=== PATIENT | female | born 1955 | race American Indian/Alaskan Native ===

== ENCOUNTER 2019-04-17 17:21 | Observation (INO) | payer MEDICARE ==
[2019-04-17] MEDS ORDERED: ALBUTEROL 2.5 MG/3 ML NEBU IH ONE ×2 (18:03→18:07)
[2019-04-17] MEDS ORDERED: IPRATROPIUM 0.02% NEBU 2.5 ML IH ONE ×2 (18:03→18:07)
[2019-04-17] MEDS ORDERED: methylPREDNISolone Sod Succinate 125 MG/2 ML INJ IV ONE (18:03)
--- NOTE | 2019-04-17 18:03 | Event Note ---
ED Screening Note ED Screening Note: sore throat diarrhea +SOB productive cough no fever PMHx asthma, hld, HTN, anemia, GERD allergy: morphine This initial assessment/diagnostic orders/clinical plan/treatment(s) is/are subject to change based on patients health status, clinical progression and re- assessment by fellow clinical providers in the ED. Further treatment and workup at subsequent clinical providers discretion. Patient/guardian urged not to elope from the ED as their condition may be serious if not clinically assessed and ma naged. Initial orders include: labs, CXR, neb tx, steroids, rapid flu
[2019-04-17 19:20] LABS: Basophils # (Auto) 0.1 K/mm3 (0.0-0.1); Basophils % (Auto) 1.1 % (0.0-1.8); Eosinophils # (Auto) 0.4 K/mm3 (0.0-0.4); Eosinophils % (Auto) 5.1 % (0.0-4.3); Hemoglobin 13.8 gm/dl (10.1-14.3); Lymphocytes # (Auto) 2.3 K/mm3 (1.2-5.4); Lymphocytes % (Auto) 29.1 % (13.4-35.0); Mean Corpuscular HGB Conc 33 % (30-34); Mean Corpuscular Volume 80 fl (79-97); Monocytes # (Auto) 0.5 K/mm3 (0.0-0.8); Monocytes % (Auto) 6.7 % (0.0-7.3); Platelet Count 421 K/mm3 (140-440); Red Blood Count 5.25 M/mm3 (3.65-5.03); Red Cell Distribution Width 16.9 % (13.2-15.2)
--- NOTE | 2019-04-17 19:20 | XRay Report ---
CHEST 2 VIEWS INDICATION / CLINICAL INFORMATION: cough, SOB. COMPARISON: 06/18/2015 FINDINGS: SUPPORT DEVICES: None. HEART / MEDIASTINUM: No significant abnormality. LUNGS / PLEURA: No significant pulmonary or pleural abnormality. No pneumothorax. ADDITIONAL FINDINGS: No significant additional findings. IMPRESSION: 1. No acute findings. No interval change. Signer Name: Kate Barahona MD Signed: 04/17/2019 7:15 PM Workstation Name: [id number]
[2019-04-17 19:44] LABS: BUN/Creatinine Ratio 13; Blood Urea Nitrogen 14 mg/dL (7-17); Calcium 9.8 mg/dL (8.4-10.2); Hemolysis Index 1
[2019-04-17] MEDS ORDERED: methylPREDNISolone Sod Succinate 125 MG/2 ML INJ ONE (20:38)
[2019-04-17] MEDS ORDERED: ONDANSETRON 4 MG/2 ML INJ ONE (21:06)
[2019-04-17] MEDS ORDERED: ONDANSETRON 4 MG/2 ML INJ IV ONE ×2 (21:07→22:10)
[2019-04-17] MEDS ORDERED: FUROSEMIDE 20 MG/2 ML INJ IV ONE (22:33)
--- NOTE | 2019-04-17 23:40 | Cat Scan Report ---
CT ANGIOGRAPHY OF THE CHEST WITH INTRAVENOUS CONTRAST AND MULTIPLANAR MIP RECONSTRUCTIONS INDICATION / CLINICAL INFORMATION: Shortness of breath and elevated d-dimer. TECHNIQUE: Axial CT images were obtained after injection of 100 cc Omnipaque 350 IV contrast using CTA protocol. 3 plane MIP / 3D reconstructions were produced. All CT scans at this location are performed using CT dose reduction for ALARA by means of automated exposure control. COMPARISON: None available. FINDINGS: There is good opacification of the pulmonary arterial system bilaterally without intraluminal filling defect to suggest acute PTE. The thoracic aorta is normal in caliber without dissection. There is mi ld coronary artery calcification. The tracheobronchial tree is normal. There are several small noncalcified nodules in the right middle and lower lobes, the largest of which measures approximately 5 mm. There is no evidence of adenopath y or effusion. The gallbladder is surgically absent. I do not identify a left kidney. There is a right breast implan t. There is mild spondylosis. IMPRESSION: 1. No evidence of acute PTE. 2. Multiple small incidental solid nodules in the right middle and lower lobe, the largest of which m easures 5 mm. 3. Mild coronary artery calcification. INCIDENTAL PULMONARY NODULE RECOMMENDATIONS Solid Nodule size <6 mm -- Single or Multiple - Low Risk Patient: No routine follow-up - High Risk Patient: Optional CT at 12 months Note These recommendations do not apply to lung cancer screening, patients with immunosuppression, o r patients with known primary cancer. Note Newly detected indeterminate nodule in persons 35 years of age or older. Persons under the age of 35 should not receive follow-up unless there is a known primary cancer. Low Risk Patient -- minimal or absent history of smoking and of other known risk factors. High Risk Patient -- history of smoking or of other known risk factors. Nodule dimensions are average of long and short axes, rounded to the nearest millimeter. Based on 2017 Fleischner Society Guidelines found in Radiology 2017 284:228-243. https://doi.[email or web address] [email or web address] Signer Name: Sriram Reed MD Signed: 04/17/2019 11:36 PM Workstation Name: [id number]
[2019-04-18] MEDS ORDERED: ONDANSETRON 4 MG/2 ML INJ ONE ×2 (00:11→05:43)
--- NOTE | 2019-04-18 00:16 | Emergency Department Report ---
HPI - General Chief Complaint: Dyspnea/Respdistress Time Seen by Provider: 04/17/19 17:58 - HPI HPI: 63-year-old -[place] female presents to the emergency department with a complaint of a 3 to four-day history of shortness of breath, productive cough and chest congestion. She also complains of some sore throat and recent diarrhea. She has not taken anything for her symptoms prior to presentation. She has a past history of asthma, COPD, diabetes, GERD, hypertension, anemia, high cholesterol. She denies any tobacco or illicit drug use. Her primary care physician is Dr. Saleem Garcia. ED Past Medical Hx - Past Medical History Previous Medical History?: Yes Hx Hypertension: Yes Hx Diabetes: Yes Hx GERD: Yes Hx Asthma: Yes Hx COPD: Yes Additional medical history: ANEMIA. HIGH CHOLESTEROL - Surgical History Past Surgical History?: Yes Hx Cholecystectomy: Yes Hx Breast Surgery: Yes (RIGHT MASTECTOMY/IMPLANT) - Social History Smoking Status: Former Smoker Substance Use Type: None - Medications Home Medications: Home Medications Medication Instructions Recorded Confirmed Last Taken Type Albuterol Sulfate [Proair 90 mcg IH DAILY 10/11/14 10/11/14 Unknown History Respiclick] Fluticasone/Salmeterol [Advair 1 ampul IH DAILY 10/11/14 10/11/14 Unknown History Diskus 500-50 mcg] Ibuprofen [Motrin 800 MG tab] 800 mg PO Q8HR PRN 10/11/14 10/11/14 Unknown History Omeprazole [PriLOSEC] 20 mg PO QDAY 10/11/14 10/11/14 Unknown History Promethazine [Phenergan SUPPOS] 25 mg [place] Q6HR PRN #10 supp.rect 10/11/14 Unknown Rx Promethazine [Phenergan TAB] 25 mg PO Q6HR PRN #20 tab 10/11/14 Unknown Rx Tiotropium [Spiriva] 18 mcg IH QDAY 10/11/14 10/11/14 Unknown History hydroCHLOROthiazide [Hctz] 25 mg PO QDAY 10/11/14 10/11/14 Unknown History metFORMIN [Glucophage] 500 mg PO BID 10/11/14 10/11/14 Unknown History Azithromycin [Zithromax Z-JENNIE] 250 mg PO DAILY 5 Days tablet 06/18/15 Unknown Rx Benzonatate [Tessalon Perles] 100 mg PO Q8HR PRN #20 capsule 06/18/15 Unknown Rx HYDROcodone/APAP 5-325 [[place] 1 - 2 each PO Q6HR PRN #20 tablet 06/18/15 Unknown Rx 5-325 mg TAB] Ibuprofen [Motrin] 800 mg PO Q8HR PRN #20 tablet 06/18/15 Unknown Rx ED Review of Systems ROS: Stated complaint: FLU LIKE SX/SOB Other details as noted in HPI Comment: All other systems reviewed and negative Constitutional: chills. denies: fever Eyes: denies: eye pain, vision change ENT: throat pain. denies: ear pain Respiratory: cough, shortness of breath, SOB with exertion Cardiovascular: denies: palpitations, edema Gastrointestinal: nausea, vomiting. denies: abdominal pain Genitourinary: denies: dysuria, discharge Musculoskeletal: denies: back pain, arthralgia Skin: denies: rash, lesions Neurological: denies: headache, weakness Physical Exam - Physical Exam Vital Signs: Vital Signs 04/17/19 04/17/19 04/17/19 17:59 20:34 21:00 Temperature 99 F 98.4 F Pulse Rate 138 H 98 H 120 H Respiratory 24 28 H 22 Rate Blood Pressure 137/86 148/105 Blood Pressure 140/89 [Left] O2 Sat by Pulse 94 95 95 Oximetry 04/17/19 04/18/19 22:00 00:01 Temperature Pulse Rate 111 H Respiratory 20 Rate Blood Pressure 148/105 144/97 Blood Pressure [Left] O2 Sat by Pulse 93 98 Oximetry Physical Exam: GENERAL: The patient is well-developed well-nourished. HEENT: Normocephalic. Atraumatic. Patient has moist mucous membranes. EYES: Extraocular motions are intact. NECK: Supple. Trachea is midline. CHEST/LUNGS: Coarse breath sounds heard throughout the chest, both with and without auscultation. There is mild tachypnea but no accessory muscle use. There is no respiratory distress noted. HEART/CARDIOVASCULAR: Regular. There is mild tachycardia. There is no murmur. ABDOMEN: Abdomen is soft, nontender. Patient has normal bowel sounds. There is no abdominal distention. SKIN:Skin is warm and dry. . NEURO: The patient is awake, alert, and oriented. The patient is cooperative. The patient has no focal neurologic deficits. Normal speech. MUSCULOSKELETAL: There is no tenderness or deformity. There is no limitation range of motion. There is no evidence of acute injury. ED Course Vital Signs 04/17/19 04/17/19 04/17/19 17:59 20:34 21:00 Temperature 99 F 98.4 F Pulse Rate 138 H 98 H 120 H Respiratory 24 28 H 22 Rate Blood Pressure 137/86 148/105 Blood Pressure 140/89 [Left] O2 Sat by Pulse 94 95 95 Oximetry 04/17/19 04/18/19 22:00 00:01 Temperature Pulse Rate 111 H Respiratory 20 Rate Blood Pressure 148/105 144/97 Blood Pressure [Left] O2 Sat by Pulse 93 98 Oximetry ED Medical Decision Making - Lab Data Result diagrams: 04/17/19 18:32 04/17/19 18:32 - EKG Data -: EKG Interpreted by Me EKG shows normal: sinus rhythm (PACs), axis, intervals, QRS complexes, ST-T waves Rate: tachycardia (119 bpm) - EKG Data When compared to previous EKG there are: previous EKG unavailable Interpretation: other (sinus tachycardia, PACs, no ST elevation NM) - Radiology Data Radiology results: report reviewed, image reviewed interpreted by me: Chest x-ray does not show any pleural effusions, pneumonia, pneumothorax, focal consolidation, or any other acute process. CT ANGIOGRAPHY OF THE CHEST WITH INTRAVENOUS CONTRAST AND MULTIPLANAR MIP RECONS TRUCTIONS INDICATION / CLINICAL INFORMATION: Shortness of breath and elevated d-dimer. TECHNIQUE: Axial CT images were obtained after injection of 100 cc Omnipaque 350 IV contrast using CTA protocol. 3 plane MIP / 3D reconstructions were produced. All CT scans at this location are performed using CT dose reduction for ALARA by means of automated exposure control. COMPARISON: None available. FINDINGS: There is good opacification of the pulmonary arterial system bilaterally without intraluminal filling defect to suggest acute PTE. The thoracic aorta is normal in caliber without dissection. There is mild coronary artery calcification. The tracheobronchial tree is normal. There are several small noncalcified nodules in the right middle and lower lobes, the largest of which measures approximately 5 mm. There is no evidence of adenopathy or effusion. The gallbladder is surgically absent. I do not identify a left kidney. There is a right breast implant. There is mild spondylosis. IMPRESSION: 1. No evidence of acute PTE. 2. Multiple small incidental solid nodules in the right middle and lower lobe, the largest of which measures 5 mm. 3. Mild coronary artery calcification. - Medical Decision Making This patient presents with a few days of shortness of breath, productive cough. She presents to the emergency department with a heart rate of about 135. D uring my initial examination the patient has coarse breath sounds and some mild tachypnea but she is not in any respiratory distress. Chest x-ray did not show any acute process. Recent labs were mostly unremarkable except for a elevated and equivocal d-dimer and the patient had a moderately elevated BNP of about 3500. Patient was given 15 mg of albuterol, some Solu-Medrol, a dose of Lasix. She has started to diurese. She is starting to show some improvement but given her presentation, her comorbidities, the patient will be admitted to the hospital for further evaluation and treatment. She was accepted for admission by the hospitalist, Dr. Graf. - Differential Diagnosis COPD, CHF, Pneumonia, PE Critical Care Time: No Critical care attestation.: If time is entered above; I have spent that time in minutes in the direct care of this critically ill patient, excluding procedure time. ED Disposition Clinical Impression: COPD exacerbation Dyspnea Qualifiers: Dyspnea type: shortness of breath Qualified Code(s): R06.02 - Shortness of breath CHF (congestive heart failure) Qualifiers: Heart failure type: unspecified Heart failure chronicity: unspecified Qualified Code(s): I50.9 - Heart failure, unspecified Disposition: 09 OP ADMIT IP TO THIS HOSP Is pt being admited?: Yes Condition: Fair Instructions: Chronic Obstructive Pulmonary Disease (ED) Referrals: PRIMARY CARE, [Referring] - 3-5 Days Time of Disposition: 00:17
--- NOTE | 2019-04-18 00:24 | History and Physical Report ---
History of Present Illness Date of examination: 04/17/19 Date of admission: 04/17/19 Chief complaint: Headache, shortness of breath x3 days History of present illness: Patient is a 63-year-old female with a past medical history of asthma, COPD, DM 2, breast cancer and COPD who presents to ER with complaints of headache, sore throat, diarrhea, nausea and shortness of breath x 3 days. Patient states she has been finding it more difficult to complete activities as she is getting more winded with each step this evening. Patient also reports not been able to keep food down over the last couple days due to increasing nausea. During my evaluation patient continues to have nausea without vomiting and appears uncomfortable she denies any fever, chest pain or syncopal episode. Past History Past Medical History: COPD, diabetes, hypertension, other Past Surgical History: cholecystectomy, Other (Right mastectomy) Family history: hypertension Medications and Allergies Allergies Allergy/AdvReac Type Severity Reaction Status Date / Time morphine AdvReac HALLUCINATI Verified 10/11/14 10:18 ONS Home Medications Medication Instructions Recorded Confirmed Last Taken Type Albuterol Sulfate [Proair 90 mcg IH DAILY 10/11/14 10/11/14 Unknown History Respiclick] Fluticasone/Salmeterol [Advair 1 ampul IH DAILY 10/11/14 10/11/14 Unknown History Diskus 500-50 mcg] Ibuprofen [Motrin 800 MG tab] 800 mg PO Q8HR PRN 10/11/14 10/11/14 Unknown History Omeprazole [PriLOSEC] 20 mg PO QDAY 10/11/14 10/11/14 Unknown History Promethazine [Phenergan SUPPOS] 25 mg [place] Q6HR PRN #10 supp.rect 10/11/14 Unknown Rx Promethazine [Phenergan TAB] 25 mg PO Q6HR PRN #20 tab 10/11/14 Unknown Rx Tiotropium [Spiriva] 18 mcg IH QDAY 10/11/14 10/11/14 Unknown History hydroCHLOROthiazide [Hctz] 25 mg PO QDAY 10/11/14 10/11/14 Unknown History metFORMIN [Glucophage] 500 mg PO BID 10/11/14 10/11/14 Unknown History Azithromycin [Zithromax Z-JENNIE] 250 mg PO DAILY 5 Days tablet 06/18/15 Unknown Rx Benzonatate [Tessalon Perles] 100 mg PO Q8HR PRN #20 capsule 06/18/15 Unknown Rx HYDROcodone/APAP 5-325 [[place] 1 - 2 each PO Q6HR PRN #20 tablet 06/18/15 Un known Rx 5-325 mg TAB] Ibuprofen [Motrin] 800 mg PO Q8HR PRN #20 tablet 06/18/15 Unknown Rx Review of Systems All systems: negative Ears, nose, mouth and throat: sore throat Cardiovascular: shortness of breath, dyspnea on exertion, high blood pressure Respiratory: cough Gastrointestinal: diarrhea Neurological: headaches Exam - Physical Exam Narrative exam: General appearance: Present: mild distress - EENT Eyes: Present: PERRL ENT: hearing intact, clear oral mucosa - Neck Neck: Present: supple, normal ROM - Respiratory Respiratory effort: normal Respiratory: bilateral: wheeze, - Cardiovascular Heart Sounds: Present: S1 & S2. Absent: rub, click - Extremities Extremities: pulses symmetrical, No edema Peripheral Pulses: within normal limits - Abdominal General gastrointestinal: Present: , non-distended, normal bowel sounds Female genitourinary: Present: normal - Integumentary Integumentary: Present: clear, warm, dry - Musculoskeletal Musculoskeletal: gait normal, strength equal bilaterally - Psychiatric Psychiatric: appropriate mood/affect, intact judgment & insight - Neurologic Neurologic: CNII-XII intact, moves all extremities - Constitutional Vitals: Temp Pulse Resp BP Pulse Ox 98.4 F 111 H 20 144/97 98 04/17/19 20:34 04/17/19 22:00 04/17/19 22:00 04/18/19 00:01 04/18/19 00:01 Results - Labs CBC & Chem 7: 04/17/19 18:32 04/17/19 18:32 Labs: Laboratory Last Values WBC 7.9 K/mm3 (4.5-11.0) 04/17/19 18:32 RBC 5.25 M/mm3 (3.65-5.03) H 04/17/19 18:32 Hgb 13.8 gm/dl (10.1-14.3) 04/17/19 18:32 Hct 42.0 % (30.3-42.9) 04/17/19 18:32 MCV 80 fl (79-97) 04/17/19 18:32 MCH 26 pg (28-32) L 04/17/19 18:32 MCHC 33 % (30-34) 04/17/19 18:32 RDW 16.9 % (13.2-15.2) H 04/17/19 18:32 Plt Count 421 K/mm3 (140-440) 04/17/19 18:32 Lymph % (Auto) 29.1 % (13.4-35.0) 04/17/19 18:32 [place] % (Auto) 6.7 % (0.0-7.3) 04/17/19 18:32 Eos % (Auto) 5.1 % (0.0-4.3) H 04/17/19 18: Baso % (Auto) 1.1 % (0.0-1.8) 04/17/19 18: Lymph # 2.3 K/mm3 (1.2-5.4) 04/17/19 18: [place] # 0.5 K/mm3 (0.0-0.8) 04/17/19 18: Eos # 0.4 K/mm3 (0.0-0.4) 04/17/19 18: Baso # 0.1 K/mm3 (0.0-0.1) 04/17/19 18: Seg Neutrophils % 58.0 % (40.0-70.0) 04/17/19 18: Seg Neutrophils # 4.6 K/mm3 (1.8-7.7) 04/17/19 18:32 D-Dimer 469.29 ng/mlDDU (0-234) H 04/17/19 21:37 Sodium 142 mmol/L (137-145) 04/17/19 18:32 Potassium 3.8 mmol/L (3.6-5.0) 04/17/19 18:32 Chloride 101.8 mmol/L (98-107) 04/17/19 18:32 Carbon Dioxide 19 mmol/L (22-30) L 04/17/19 18:32 Anion Gap 25 mmol/L 04/17/19 18:32 BUN 14 mg/dL (7-17) 04/17/19 18:32 Creatinine 1.1 mg/dL (0.7-1.2) 04/17/19 18:32 Estimated GFR > 60 ml/min 04/17/19 18:32 BUN/Creatinine Ratio 13 % 04/17/19 18:32 Glucose 123 mg/dL (65-100) H 04/17/19 18:32 Calcium 9.8 mg/dL (8.4-10.2) 04/17/19 18:32 NT-Pro-B Natriuret Pep 3480 pg/mL (0-900) H 04/17/19 18:32 Influenza A (Rapid) Negative (Negative) 04/17/19 18:05 Influenza B (Rapid) Negative (Negative) 04/17/19 18:05 - Imaging and Cardiology Chest x-ray: report reviewed (No acute findings. No interval change.) CT scan - chest: report reviewed (No evidence of acute PTE. Multiple small incidental solid nodules in the right middle and lower lobe, the largest of Which measures 5 mm. Mild coronary artery calcification. ) Assessment and Plan Assessment and plan: The patient has been seen in conjunction with Dr. Graf who agrees with the assessment and plan of care. Congestive heart Failure -BNP 3500 -Monitor input and output. -IV diuretics, supportive care -Cardiology consult -Echocardiogram ordered Hypertension -Home meds once reconciled -Monitor BP q shift Diabetes mellitus -Patient is not on any diabetes medication; sts borderline -Accu-Chek achs - sliding scale insulin if needed DVT prophylaxis -SCDs bilaterally -Patient ambulatory VTE prophylaxis?: Mechanical Plan of care discussed with patient/family: Yes
[2019-04-18] MEDS ORDERED: HYDROmorphone 1 MG/1 ML INJ ONE (03:41)
[2019-04-18] MEDS: HYDROmorphone 1 MG/1 ML INJ IV PRN (03:42)
[2019-04-18] MEDS ORDERED: ONDANSETRON 4 MG/2 ML INJ IV ONE (05:34)
[2019-04-18] MEDS ORDERED: FUROSEMIDE 40 MG/4 ML INJ ONE (05:43)
[2019-04-18] MEDS ORDERED: PANTOPRAZOLE 40 MG INJ IV ONE (05:44)
[2019-04-18] MEDS: PANTOPRAZOLE 40 MG INJ IV SCH ×3 (05:47→21:58)
[2019-04-18] MEDS ORDERED: SODIUM CHLORIDE 0.9% 1000 ML 1,000 ML ONE (05:57)
[2019-04-18] MEDS: FUROSEMIDE 40 MG/4 ML INJ IV SCH ×2 (06:00→17:19)
[2019-04-18] MEDS: SODIUM CHLORIDE 0.9% 1000 ML 1,000 ML IV SCH ×2 (06:00→17:15)
[2019-04-18] MEDS ORDERED: hydrALAZINE 20 MG/1 ML INJ IV PRN (06:04)
--- NOTE | 2019-04-18 06:39 | Cat Scan Report ---
CT OF THE ABDOMEN AND PELVIS WITH INTRAVENOUS CONTRAST INDICATION / CLINICAL INFORMATION: Mid abdominal pain and dark emesis. TECHNIQUE: The patient received 100 cc Omnipaque [address] scans at this location are performed using CT dose reduction for ALARA by means of automated exposure control. COMPARISON: 10/11/2014. FINDINGS: ABDOMEN: The gallbladder is surgically absent. The liver, spleen, bile ducts, pancreas, adrenal gland s and right kidney are normal. There is a left pelvic kidney. I see no evidence of bowel obstruction, wall thickening or free air. PELVIS: The distal ureters and urinary bladder are normal. There are scattered left colonic diverticu la without evidence of diverticulitis. There is a small to moderate fat-containing periumbilical malachi ia without complication. A normal appendix is present. No abnormal mass or fluid collection is seen. There is mild spondylosis. IMPRESSION:No acute abnormality or significant change. Signer Name: Sriram Reed MD Signed: 04/18/2019 6:34 AM Workstation Name: [id number]
[2019-04-18] MEDS: ALBUTEROL 2.5 MG/3 ML NEBU IH PRN (06:45)
[2019-04-18] MEDS ORDERED: ALBUTEROL 2.5 MG/3 ML NEBU IH ONE (06:46)
[2019-04-18] MEDS: ONDANSETRON 4 MG/2 ML INJ IV PRN (09:49)
[2019-04-18] MEDS: POTASSIUM CHLORIDE ER 20 MEQ TAB PO SCH (09:50)
[2019-04-18] MEDS: ACETAMINOPHEN 325 MG TAB PO PRN (09:52)
--- NOTE | 2019-04-18 11:06 | Gastroenterology Consultation ---
<FABY ALMONTE - Last Filed: 04/18/19 12:11> History of Present Illness - Reason for Consult Consult date: 04/18/19 coffee-ground emesis Requesting physician: ATILIO HASSAN - History of Present Illness Patient is a 63 y/o female with PMH of HTN, DM, GERD, chronic anemia, breast CA (s/p mastectomy), and HLD who presented to ED with c/o SOB, cough, chest congestion, sore throat, headache, diarrhea, and N/V. Upon admission, BNP was found to be moderately elevated at 3480 (chest x-ray w/o acute process, Chest CTA w/o acute PTE) and she was admitted with COPD exacerbation and CHF. Cardiology consult pending. GI has been consulted for coffee-ground emesis. This morning patient was resting in bed in mild distress. Reports continued SOB and N/V. Diarrhea now resolved. States emesis is dark green in color. No hematemesis, melena, or hematochezia. Admits to associated upper abdominal cramping. Denies fever, CP, wt loss, dysphagia, odynophagia, or constipation. Takes Meloxicam at home for hip pain but has no hx of PUD. No prior EGD. s/p CCY. Patient is previously known to our service and followed by Dr. Duke for hx of colon polyps with last colonoscopy 04/28/2018 that showed a rectal polyp, diverticulosis, and internal hemorrhoids. Past History Past Medical History: other (see HPI) Past Surgical History: cholecystectomy, Other (Right mastectomy; colonoscopy 04/2018) Family history: hypertension Medications and Allergies Allergies Allergy/AdvReac Type Severity Reaction Status Date / Time morphine AdvReac HALLUCINATI Verified 10/11/14 10:18 ONS Home Medications Medication Instructions Recorded Confirmed Last Taken Type AtorvaSTATin [Lipitor] 40 mg PO QHS 04/18/19 04/18/19 Unknown History Ferrous Sulfate [Iron 325 MG] 325 mg PO DAILY 04/18/19 04/18/19 Unknown History Fluticasone Propion/Salmeterol 250 puff PO BID 04/18/19 04/18/19 Unknown History [Wixela 250-50 Inhub] Omeprazole 40 mg PO DAILY 04/18/19 04/18/19 Unknown History hydroCHLOROthiazide 25 mg PO HS 04/18/19 04/18/19 Unknown History [Hydrochlorothiazide] Active Meds: Active Medications Acetaminophen (Tylenol) 650 mg PO Q4H PRN PRN Reason: Pain MILD(1-3)/Fever >100.5/CUELLAR Last Admin: 04/18/19 09:52 Dose: 650 mg Documented by: Albuterol (Proventil) 2.5 mg IH Q4HRT PRN PRN Reason: Shortness Of Breath Last Admin: 04/18/19 06:45 Dose: 2.5 mg Documented by: Furosemide (Lasix) 40 mg IV BID@0600,1800 [facility] Last Admin: 04/18/19 06:00 Dose: 40 mg Documented by: Hydralazine HCl (Apresoline) 10 mg IV Q4H PRN PRN Reason: Hypertension Hydromorphone HCl (Dilaudid) 0.25 mg IV Q3H PRN PRN Reason: Pain, Moderate (4-6) Last Admin: 04/18/19 03:42 Dose: 0.25 mg Documented by: Sodium Chloride (Nacl 0.9% 1000 Ml) 1,000 mls @ 125 mls/hr IV DIRECT [facility] Last Admin: 04/18/19 06:00 Dose: 125 mls/hr Documented by: Ondansetron HCl (Zofran) 4 mg IV Q8H PRN PRN Reason: Nausea And Vomiting Last Admin: 04/18/19 09:49 Dose: 4 mg Documented by: Pantoprazole Sodium (Protonix) 40 mg IV BID [facility] Last Admin: 04/18/19 09:49 Dose: 40 mg Documented by: Potassium Chloride (K-Dur) 20 meq PO QDAY [facility] Last Admin: 04/18/19 09:50 Dose: 20 meq Documented by: Sodium Chloride (Sodium Chloride Flush Syringe 10 Ml) 10 ml IV BID [facility] Last Admin: 04/18/19 09:50 Dose: 10 ml Documented by: Sodium Chloride (Sodium Chloride Flush Syringe 10 Ml) 10 ml IV PRN PRN PRN Reason: LINE FLUSH medications reviewed/updated as required Review of Systems - Review of Systems All systems: negative Ears, Nose, Throat: other (sore throat) Respiratory: shortness of breath Gastrointestinal: abdominal pain (cramping), nausea, vomiting, diarrhea (resolved) Exam - Constitutional Vital Signs: Temp Pulse Resp BP Pulse Ox 98.4 F 90 22 141/115 93 04/18/19 02:37 04/18/19 06:46 04/18/19 06:46 04/18/19 06:17 04/18/19 06:17 General appearance: mild distress, obese - EENT Eyes: PERRL, EOM intact ENT: hearing intact - Respiratory Respiratory effort: labored (slightly) Respiratory: bilateral: other (coarse) - Cardiovascular Rhythm: other (tachycardia) - Gastrointestinal General gastrointestinal: Present: soft, non-tender, non-distended, normal bowel sounds - Neurologic Neurological: alert and oriented x3 - Labs CBC & Chem 7: 04/17/19 18:32 04/17/19 18:32 Lab Results: Laboratory Results - last 24 hr 04/17/19 04/17/19 04/17/19 18:05 18:32 18:32 WBC 7.9 RBC 5.25 H Hgb 13.8 Hct 42.0 MCV 80 MCH 26 L MCHC 33 RDW 16.9 H Plt Count 421 Lymph % (Auto) 29.1 [place] % (Auto) 6.7 Eos % (Auto) 5.1 H Baso % (Auto) 1.1 Lymph # 2.3 [place] # 0.5 Eos # 0.4 Baso # 0.1 Seg Neutrophils % 58.0 Seg Neutrophils # 4.6 D-Dimer Sodium 142 Potassium 3.8 Chloride 101.8 Carbon Dioxide 19 L Anion Gap 25 BUN 14 Creatinine 1.1 Estimated GFR > 60 BUN/Creatinine Ratio 13 Glucose 123 H Calcium 9.8 NT-Pro-B Natriuret Pep Influenza A (Rapid) Negative Influenza B (Rapid) Negative Group A Strep Rapid 04/17/19 04/17/19 04/17/19 18:32 21:37 23:57 WBC RBC Hgb Hct MCV MCH MCHC RDW Plt Count Lymph % (Auto) [place] % (Auto) Eos % (Auto) Baso % (Auto) Lymph # [place] # Eos # Baso # Seg Neutrophils % Seg Neutrophils # D-Dimer 469.29 H Sodium Potassium Chloride Carbon Dioxide Anion Gap BUN Creatinine Estimated GFR BUN/Creatinine Ratio Glucose Calcium NT-Pro-B Natriuret Pep 3480 H Influenza A (Rapid) Influenza B (Rapid) Group A Strep Rapid Negative Assessment and Plan 1.coffee-ground emesis 2.N/V -H/H WNL (13.8/42.0) -continue to monitor H/H and transfuse as needed -patient reports dark green emesis; no hematemesis, melena, or hematochezia -etiology unclear -no plan for scope at this time, will consider based on clinical course once respiratory status improved (would need cardiac clearance); sooner if overt bleeding develops -continue PPI -okay for clear liquids as tolerated -continue supportive care -will follow <CECILLE DAY - Last Filed: 04/19/19 14:31> Medications and Allergies Active Meds: Active Medications Acetaminophen (Tylenol) 650 mg PO Q4H PRN PRN Reason: Pain MILD(1-3)/Fever >100.5/CUELLAR Last Admin: 04/18/19 09:52 Dose: 650 mg Documented by: Albuterol (Proventil) 2.5 mg IH Q4HRT PRN PRN Reason: Shortness Of Breath Last Admin: 04/19/19 09:37 Dose: 2.5 mg Documented by: Furosemide (Lasix) 40 mg IV BID@0600,1800 [facility] Last Admin: 04/19/19 05:02 Dose: 40 mg Documented by: Hydralazine HCl (Apresoline) 10 mg IV Q4H PRN PRN Reason: Hypertension Hydromorphone HCl (Dilaudid) 0.25 mg IV Q3H PRN PRN Reason: Pain, Moderate (4-6) Last Admin: 04/19/19 10:17 Dose: 0.25 mg Documented by: Ondansetron HCl (Zofran) 4 mg IV Q8H PRN PRN Reason: Nausea And Vomiting Last Admin: 04/19/19 09:26 Dose: 4 mg Documented by: Pantoprazole Sodium (Protonix) 40 mg PO BID [facility] Last Admin: 04/19/19 09:37 Dose: 40 mg Documented by: Potassium Chloride (K-Dur) 20 meq PO QDAY [facility] Last Admin: 04/19/19 09:37 Dose: 20 meq Documented by: Sodium Chloride (Sodium Chloride Flush Syringe 10 Ml) 10 ml IV BID [facility] Last Admin: 04/19/19 09:38 Dose: 10 ml Documented by: Sodium Chloride (Sodium Chloride Flush Syringe 10 Ml) 10 ml IV PRN PRN PRN Reason: LINE FLUSH Exam - Constitutional Vital Signs: Temp Pulse Resp BP Pulse Ox 97.9 F 100 H 18 134/77 99 04/19/19 07:21 04/19/19 10:28 04/19/19 09:37 04/19/19 10:28 04/19/19 09:40 - Labs CBC & Chem 7: 04/19/19 06:28 04/19/19 06:28 Lab Results: Laboratory Results - last 24 hr 04/18/19 04/18/19 04/19/19 16:23 21:08 06:28 WBC 8.9 RBC 4.68 Hgb 12.1 Hct 37.5 MCV 80 MCH 26 L MCHC 32 RDW 17.3 H Plt Count 365 Lymph % (Auto) 25.5 [place] % (Auto) 5.1 Eos % (Auto) 0.7 Baso % (Auto) 0.4 Lymph # 2.3 [place] # 0.5 Eos # 0.1 Baso # 0.0 Seg Neutrophils % 68.3 Seg Neutrophils # 6.1 Sodium Potassium Chloride Carbon Dioxide Anion Gap BUN Creatinine Estimated GFR BUN/Creatinine Ratio Glucose POC Glucose 190 H 133 H Calcium 04/19/19 04/19/19 04/19/19 06:28 07:31 12:01 WBC RBC Hgb Hct MCV MCH MCHC RDW Plt Count Lymph % (Auto) [place] % (Auto) Eos % (Auto) Baso % (Auto) Lymph # [place] # Eos # Baso # Seg Neutrophils % Seg Neutrophils # Sodium 142 Potassium 3.8 Chloride 101.7 Carbon Dioxide 22 Anion Gap 22 BUN 21 H Creatinine 1.3 H Estimated GFR 50 BUN/Creatinine Ratio 16 Glucose 107 H POC Glucose 107 H 90 Calcium 8.8 Assessment and Plan Pt seen on 04/18/19. Respiratory symptoms primarily. No CGE noted. Plan as above.
--- NOTE | 2019-04-18 14:55 | Consultation ---
<EDNA NGUYEN - Last Filed: 04/18/19 14:50> History of Present Illness Consult date: 04/18/19 Consult reason: congestive heart failure History of present illness: 63-year old woman with a history of COPD, Asthma, hypertension, diabetes and hyperlipidemia. There is no history of coronary artery disease. Her latest cardiac workup was done as an outpatient 6 months ago. She underwent an exercise thallium stress test. She exercised for six minutes of [place] protocol. Thallium images were negative. An echocardiogram reports a normal left ventricular systolic function, ejection fraction 50%. Patient presents with shortness of breath, coughs, congestion and wheezing, admitted with COPD exacerbation. A cardiac consultation has been requested for CHF evaluation. Patient denies chest pain and palpitations. There is no lower extremity edema. Chest x-ray is negative for interstitial edema and a CT angiogram of the chest is negative for PE. An ECG is sinus tachycardia with PACs. Past History Past Medical History: other (see HPI) Past Surgical History: cholecystectomy, Other (Right mastectomy; colonoscopy 04/2018) Family history: hypertension Medications and Allergies Allergies Allergy/AdvReac Type Severity Reaction Status Date / Time morphine AdvReac HALLUCINATI Verified 10/11/14 10:18 ONS Home Medications Medication Instructions Recorded Confirmed Last Taken Type AtorvaSTATin [Lipitor] 40 mg PO QHS 04/18/19 04/18/19 Unknown History Ferrous Sulfate [Iron 325 MG] 325 mg PO DAILY 04/18/19 04/18/19 Unknown History Fluticasone Propion/Salmeterol 250 puff PO BID 04/18/19 04/18/19 Unknown History [Wixela 250-50 Inhub] Omeprazole 40 mg PO DAILY 04/18/19 04/18/19 Unknown History hydroCHLOROthiazide 25 mg PO HS 04/18/19 04/18/19 Unknown History [Hydrochlorothiazide] Active Meds: Active Medications Acetaminophen (Tylenol) 650 mg PO Q4H PRN PRN Reason: Pain MILD(1-3)/Fever >100.5/CUELLAR Last Admin: 04/18/19 09:52 Dose: 650 mg Documented by: Albuterol (Proventil) 2.5 mg IH Q4HRT PRN PRN Reason: Shortness Of Breath Last Admin: 04/18/19 06:45 Dose: 2.5 mg Documented by: Furosemide (Lasix) 40 mg IV BID@0600,1800 [facility] Last Admin: 04/18/19 06:00 Dose: 40 mg Documented by: Hydralazine HCl (Apresoline) 10 mg IV Q4H PRN PRN Reason: Hypertension Hydromorphone HCl (Dilaudid) 0.25 mg IV Q3H PRN PRN Reason: Pain, Moderate (4-6) Last Admin: 04/18/19 03:42 Dose: 0.25 mg Documented by: Sodium Chloride (Nacl 0.9% 1000 Ml) 1,000 mls @ 125 mls/hr IV DIRECT [facility] Last Admin: 04/18/19 06:00 Dose: 125 mls/hr Documented by: Ondansetron HCl (Zofran) 4 mg IV Q8H PRN PRN Reason: Nausea And Vomiting Last Admin: 04/18/19 09:49 Dose: 4 mg Documented by: Pantoprazole Sodium (Protonix) 40 mg IV BID [facility] Last Admin: 04/18/19 09:49 Dose: 40 mg Documented by: Potassium Chloride (K-Dur) 20 meq PO QDAY [facility] Last Admin: 04/18/19 09:50 Dose: 20 meq Documented by: Sodium Chloride (Sodium Chloride Flush Syringe 10 Ml) 10 ml IV BID [facility] Last Admin: 04/18/19 09:50 Dose: 10 ml Documented by: Sodium Chloride (Sodium Chloride Flush Syringe 10 Ml) 10 ml IV PRN PRN PRN Reason: LINE FLUSH Physical Examination Vital Signs Temp Pulse Resp BP Pulse Ox 99 F 138 H 24 137/86 94 04/17/19 17:59 04/17/19 17:59 04/17/19 17:59 04/17/19 17:59 04/17/19 17:59 General appearance: no acute distress HEENT: Positive: PERRL Neck: Positive: trachea midline Cardiac: Positive: Reg Rate and Rhythm Lungs: Positive: Decreased Breath Sounds, Wheezes Neuro: Positive: Grossly Intact Extremities: Absent: edema Results 04/17/19 18:32 04/17/19 18:32 CBC 04/17/19 Range/Units 18:32 WBC 7.9 (4.5-11.0) K/mm3 RBC 5.25 H (3.65-5.03) M/mm3 Hgb 13.8 (10.1-14.3) gm/dl Hct 42.0 (30.3-42.9) % Plt Count 421 (140-440) K/mm3 Lymph # 2.3 (1.2-5.4) K/mm3 [place] # 0.5 (0.0-0.8) K/mm3 Eos # 0.4 (0.0-0.4) K/mm3 Baso # 0.1 (0.0-0.1) K/mm3 Comprehensive Metabolic Panel 04/17/19 Range/Units 18:32 Sodium 142 (137-145) mmol/L Potassium 3.8 (3.6-5.0) mmol/L Chloride 101.8 (98-107) mmol/L Carbon Dioxide 19 L (22-30) mmol/L BUN 14 (7-17) mg/dL Creatinine 1.1 (0.7-1.2) mg/dL Glucose 123 H (65-100) mg/dL Calcium 9.8 (8.4-10.2) mg/dL Assessment and Plan COPD exacerbation Diabetes Hypertension Normal MPI 09/2018 EF 50% by echo 07/2018 We will obtain an echocardiogram for LVEF reassessment. <RAFIQ TENORIO - Last Filed: 04/19/19 09:35> Medications and Allergies Active Meds: Active Medications Acetaminophen (Tylenol) 650 mg PO Q4H PRN PRN Reason: Pain MILD(1-3)/Fever >100.5/CUELLAR Last Admin: 04/18/19 09:52 Dose: 650 mg Documented by: Albuterol (Proventil) 2.5 mg IH Q4HRT PRN PRN Reason: Shortness Of Breath Last Admin: 04/18/19 06:45 Dose: 2.5 mg Documented by: Furosemide (Lasix) 40 mg IV BID@0600,1800 [facility] Last Admin: 04/19/19 05:02 Dose: 40 mg Documented by: Hydralazine HCl (Apresoline) 10 mg IV Q4H PRN PRN Reason: Hypertension Hydromorphone HCl (Dilaudid) 0.25 mg IV Q3H PRN PRN Reason: Pain, Moderate (4-6) Last Admin: 04/18/19 03:42 Dose: 0.25 mg Documented by: Ondansetron HCl (Zofran) 4 mg IV Q8H PRN PRN Reason: Nausea And Vomiting Last Admin: 04/19/19 09:26 Dose: 4 mg Documented by: Pantoprazole Sodium (Protonix) 40 mg PO BID [facility] Potassium Chloride (K-Dur) 20 meq PO QDAY [facility] Last Admin: 04/18/19 09:50 Dose: 20 meq Documented by: Sodium Chloride (Sodium Chloride Flush Syringe 10 Ml) 10 ml IV BID [facility] Last Admin: 04/18/19 21:58 Dose: 10 ml Documented by: Sodium Chloride (Sodium Chloride Flush Syringe 10 Ml) 10 ml IV PRN PRN PRN Reason: LINE FLUSH Physical Examination Vital Signs Temp Pulse Resp BP Pulse Ox 99 F 138 H 24 137/86 94 04/17/19 17:59 04/17/19 17:59 04/17/19 17:59 04/17/19 17:59 04/17/19 17:59 Results 04/19/19 06:28 04/19/19 06:28 CBC 04/19/19 Range/Units 06:28 WBC 8.9 (4.5-11.0) K/mm3 RBC 4.68 (3.65-5.03) M/mm3 Hgb 12.1 (10.1-14.3) gm/dl Hct 37.5 (30.3-42.9) % Plt Count 365 (140-440) K/mm3 Lymph # 2.3 (1.2-5.4) K/mm3 [place] # 0.5 (0.0-0.8) K/mm3 Eos # 0.1 (0.0-0.4) K/mm3 Baso # 0.0 (0.0-0.1) K/mm3 Comprehensive Metabolic Panel 04/19/19 Range/Units 06:28 Sodium 142 (137-145) mmol/L Potassium 3.8 (3.6-5.0) mmol/L Chloride 101.7 (98-107) mmol/L Carbon Dioxide 22 (22-30) mmol/L BUN 21 H (7-17) mg/dL Creatinine 1.3 H (0.7-1.2) mg/dL Glucose 107 H (65-100) mg/dL Calcium 8.8 (8.4-10.2) mg/dL Assessment and Plan As seen and evaluated the patient and agree with the assessment and plan. The patient's presenting with COPD exacerbation diabetes and hypertension. Patient had a recent stress test in September 2018 that showed normal coronary arteries. Patient also had an echo in July 2018 that showed normal ejection fraction 50%; however, diastolic function is not mentioned. At this time will will obtain another echocardiogram for reevaluation of LV function and evaluation of diastolic function.
--- NOTE | 2019-04-18 14:58 | Progress Note ---
Assessment and Plan Acute COPD exacerbation - provide scheduled nebulizer breathing treatment and as needed, empiric steroid - Provide supplemental oxygen to keep oxygen saturation above 92% - Consider to consult pulmonary if no improvement in next 24 hours Congestive heart Failure ?? -BNP 3500 on admission -Monitor input and output. -placed on IV diuretics, supportive care -Cardiology consulted -Echocardiogram ordered coffee-ground emesis/N/V - GERD ? -H/H WNL (13.8/42.0) -continue to monitor H/H and transfuse as needed -etiology unclear -no plan for scope at this time per GI -continue PPI Hypertension -Home meds resumed -Monitor BP q shift Diabetes mellitus, diet controlled -Patient is not on any diabetes medication; -Accu-Chek achs - sliding scale insulin if needed h/o breast cancer - outpt f/u DVT prophylaxis -SCDs bilaterally -Patient ambulatory Brief History: Patient is a 63-year-old female with a past medical history of asthma, COPD, DM 2, breast cancer and COPD who presents to ER with complaints of headache, sore throat, diarrhea, nausea and shortness of breath x 3 days. Also have report of having coffee ground emesis Hospitalist Physical exam: GENERAL: well-developed obese AAF lying on bed appeared to be in no discomfort. HEENT: Normocephalic. Atraumatic. No conjunctival congestion or icterus. Patient has moist mucous membranes. NECK: Supple. Trachea midline. CHEST/LUNGS: + wheezes auscultated bilaterally, breathing nonlabored. HEART/CARDIOVASCULAR: Regular in rate and rhythm. S1 and S2 positive. ABDOMEN: Abdomen is soft, nontender. Patient has normal bowel sounds. SKIN: There is no rash. Warm and dry. NEURO: No focal motor deficit. Follows command. MUSCULOSKELETAL: No joint effusion or tenderness. EXTRIMITY: No edema, no cyanosis or clubbing. PSYCH: Cooperative. Subjective Date of service: 04/18/19 Interval history: Patient seen and examined. Medical records and medication list reviewed. No acute event overnight noted by the RN. Patient denies any chest pain but has difficulty breathing with minimal exertion. Patient is tolerating diet. Discussed plan of care at bedside with patient. Objective - Constitutional Vitals: Vital Signs - 12hr 04/18/19 04/18/19 04/18/19 03:01 03:42 04:12 Pulse Rate 111 H Pulse Rate [ Apical] Pulse Rate [ Bilateral] Pulse Rate [ From Monitor] Respiratory 24 25 H 26 H Rate Respiratory Rate [Bilateral ] Respiratory Rate [ GENERALIZED] Blood Pressure 175/100 Blood Pressure [Left] O2 Sat by Pulse 91 Oximetry 04/18/19 04/18/19 04/18/19 05:00 06:17 06:46 Pulse Rate 98 H 121 H Pulse Rate [ Apical] Pulse Rate [ 90 Bilateral] Pulse Rate [ From Monitor] Respiratory 23 25 H Rate Respiratory 22 Rate [Bilateral ] Respiratory Rate [ GENERALIZED] Blood Pressure 188/109 Blood Pressure 141/115 [Left] O2 Sat by Pulse 90 93 Oximetry 04/18/19 04/18/19 11:00 12:00 Pulse Rate Pulse Rate [ 112 H Apical] Pulse Rate [ Bilateral] Pulse Rate [ 112 H From Monitor] Respiratory 21 Rate Respiratory Rate [Bilateral ] Respiratory 13 Rate [ GENERALIZED] Blood Pressure Blood Pressure [Left] O2 Sat by Pulse 98 Oximetry - Labs CBC & Chem 7: 04/19/19 06:28 04/19/19 06:28 Labs: Abnormal lab results 04/17/19 04/17/19 04/17/19 Range/Units 18:32 18:32 18:32 RBC 5.25 H (3.65-5.03) M/mm3 MCH 26 L (28-32) pg RDW 16.9 H (13.2-15.2) % Eos % (Auto) 5.1 H (0.0-4.3) % D-Dimer (0-234) ng/mlDDU Carbon Dioxide 19 L (22-30) mmol/L Glucose 123 H (65-100) mg/dL POC Glucose (70-105) NT-Pro-B Natriuret Pep 3480 H (0-900) pg/mL 04/17/19 04/18/19 Range/Units 21:37 11:18 RBC (3.65-5.03) M/mm3 MCH (28-32) pg RDW (13.2-15.2) % Eos % (Auto) (0.0-4.3) % D-Dimer 469.29 H (0-234) ng/mlDDU Carbon Dioxide (22-30) mmol/L Glucose (65-100) mg/dL POC Glucose 143 H (70-105) NT-Pro-B Natriuret Pep (0-900) pg/mL
[2019-04-19] MEDS: SODIUM CHLORIDE 0.9% 1000 ML 1,000 ML IV SCH (02:46)
[2019-04-19] MEDS: FUROSEMIDE 40 MG/4 ML INJ IV SCH ×2 (05:02→17:45)
[2019-04-19 07:54] LABS: Basophils % (Auto) 0.4 % (0.0-1.8); Eosinophils # (Auto) 0.1 K/mm3 (0.0-0.4); Eosinophils % (Auto) 0.7 % (0.0-4.3); Hematocrit 37.5 % (30.3-42.9); Hemoglobin 12.1 gm/dl (10.1-14.3); Lymphocytes # (Auto) 2.3 K/mm3 (1.2-5.4); Lymphocytes % (Auto) 25.5 % (13.4-35.0); Mean Corpuscular HGB Conc 32 % (30-34); Mean Corpuscular Volume 80 fl (79-97); Monocytes # (Auto) 0.5 K/mm3 (0.0-0.8); Monocytes % (Auto) 5.1 % (0.0-7.3); Platelet Count 365 K/mm3 (140-440); Red Blood Count 4.68 M/mm3 (3.65-5.03); Red Cell Distribution Width 17.3 % (13.2-15.2)
[2019-04-19 08:11] LABS: Calcium 8.8 mg/dL (8.4-10.2)
[2019-04-19] MEDS: ONDANSETRON 4 MG/2 ML INJ IV PRN ×2 (09:26→21:02)
[2019-04-19] MEDS: PANTOPRAZOLE 40 MG TAB PO SCH ×2 (09:37→21:02)
[2019-04-19] MEDS: ALBUTEROL 2.5 MG/3 ML NEBU IH PRN (09:37)
[2019-04-19] MEDS: POTASSIUM CHLORIDE ER 20 MEQ TAB PO SCH (09:37)
[2019-04-19] MEDS: HYDROmorphone 1 MG/1 ML INJ IV PRN (10:17)
--- NOTE | 2019-04-19 10:31 | Gastroenterology Progress Note ---
<FABY ALMONTE - Last Filed: 04/19/19 10:31> Assessment and Plan 1.coffee-ground emesis-resolved 2.N/V -H/H WNL (12.1/37.5)-stable -continue to monitor H/H and transfuse as needed -no active signs of bleeding overnight or this am -etiology unclear -no plan for scope at this time, will consider EGD for further evaluation of vomiting once respiratory status improved (would need cardiac clearance) -continue PPI -continue clear liquids for now-advance as tolerated -optimize glycemic control -avoid narcotics for this may exacerbate symptoms -continue antiemetics and supportive care Subjective Date of service: 04/19/19 Principal diagnosis: coffee-ground emesis Interval history: Patient resting in bed this am with mild distress 2/2 continued SOB and vomiting. No active signs of bleeding overnight or this am. Objective - Constitutional Vitals: Temp Pulse Resp BP Pulse Ox 97.9 F 100 H 18 134/77 99 04/19/19 07:21 04/19/19 10:28 04/19/19 09:37 04/19/19 10:28 04/19/19 09:40 General appearance: mild distress, obese - EENT Eyes: PERRL, EOM intact ENT: hearing intact - Respiratory Respiratory effort: labored (slightly ) Respiratory: bilateral: other (coarse) - Cardiovascular Rhythm: other (tachycardia) - Gastrointestinal General gastrointestinal: Present: soft, non-tender, non-distended, normal bowel sounds - Neurologic Neurological: alert and oriented x3 - Labs CBC & Chem 7: 04/19/19 06:28 04/19/19 06:28 Labs: Laboratory Results - last 24 hr 04/18/19 04/18/19 04/18/19 11:18 16:23 21:08 WBC RBC Hgb Hct MCV MCH MCHC RDW Plt Count Lymph % (Auto) [place] % (Auto) Eos % (Auto) Baso % (Auto) Lymph # [place] # Eos # Baso # Seg Neutrophils % Seg Neutrophils # Sodium Potassium Chloride Carbon Dioxide Anion Gap BUN Creatinine Estimated GFR BUN/Creatinine Ratio Glucose POC Glucose 143 H 190 H 133 H Calcium 04/19/19 04/19/19 04/19/19 06:28 06:28 07:31 WBC 8.9 RBC 4.68 Hgb 12.1 Hct 37.5 MCV 80 MCH 26 L MCHC 32 RDW 17.3 H Plt Count 365 Lymph % (Auto) 25.5 [place] % (Auto) 5.1 Eos % (Auto) 0.7 Baso % (Auto) 0.4 Lymph # 2.3 [place] # 0.5 Eos # 0.1 Baso # 0.0 Seg Neutrophils % 68.3 Seg Neutrophils # 6.1 Sodium 142 Potassium 3.8 Chloride 101.7 Carbon Dioxide 22 Anion Gap 22 BUN 21 H Creatinine 1.3 H Estimated GFR 50 BUN/Creatinine Ratio 16 Glucose 107 H POC Glucose 107 H Calcium 8.8 <CECILLE DAY R - Last Filed: 04/19/19 16:05> Assessment and Plan Pt doing well. If has persistent N/V, would give low dose Ativan. Pt has hx of anxiety, and has used lorazepam in the distant past. Objective - Constitutional Vitals: Temp Pulse Resp BP Pulse Ox 97.9 F 100 H 18 134/77 99 04/19/19 07:21 04/19/19 10:28 04/19/19 09:37 04/19/19 10:28 04/19/19 09:40 - Labs CBC & Chem 7: 04/19/19 06:28 04/19/19 06:28 Labs: Laboratory Results - last 24 hr 04/18/19 04/18/19 04/19/19 16:23 21:08 06:28 WBC 8.9 RBC 4.68 Hgb 12.1 Hct 37.5 MCV 80 MCH 26 L MCHC 32 RDW 17.3 H Plt Count 365 Lymph % (Auto) 25.5 [place] % (Auto) 5.1 Eos % (Auto) 0.7 Baso % (Auto) 0.4 Lymph # 2.3 [place] # 0.5 Eos # 0.1 Baso # 0.0 Seg Neutrophils % 68.3 Seg Neutrophils # 6.1 Sodium Potassium Chloride Carbon Dioxide Anion Gap BUN Creatinine Estimated GFR BUN/Creatinine Ratio Glucose POC Glucose 190 H 133 H Calcium 04/19/19 04/19/19 04/19/19 06:28 07:31 12:01 WBC RBC Hgb Hct MCV MCH MCHC RDW Plt Count Lymph % (Auto) [place] % (Auto) Eos % (Auto) Baso % (Auto) Lymph # [place] # Eos # Baso # Seg Neutrophils % Seg Neutrophils # Sodium 142 Potassium 3.8 Chloride 101.7 Carbon Dioxide 22 Anion Gap 22 BUN 21 H Creatinine 1.3 H Estimated GFR 50 BUN/Creatinine Ratio 16 Glucose 107 H POC Glucose 107 H 90 Calcium 8.8
--- NOTE | 2019-04-19 11:10 | Progress Note ---
<EDNA NGUYEN - Last Filed: 04/19/19 11:06> Assessment and Plan COPD exacerbation N/V Diabetes Hypertension An echocardiogram this admission reports a mildly decreased LVEF 40-45%. Normal MPI 09/2018 LVEF 50% by echo 07/2018 We will initiate beta blockers for mild dilated cardiomyopathy. Subjective Date of service: 04/19/19 Principal diagnosis: coffee-ground emesis Interval history: Patient vomiting this morning. Objective Vital Signs Temp Pulse Pulse Pulse Pulse Resp Resp 04/19/19 10:28 100 H 04/19/19 09:40 04/19/19 09:37 95 H 18 04/19/19 07:21 97.9 F 90 18 04/19/19 03:44 98.2 F 107 H 18 04/19/19 00:26 98.0 F 109 H 18 04/18/19 20:27 98.6 F 100 H 18 04/18/19 19:14 04/18/19 16:33 111 H 04/18/19 14:43 113 H 04/18/19 12:00 112 H 112 H 21 BP BP Pulse Ox 04/19/19 10:28 134/77 04/19/19 09:40 99 04/19/19 09:37 04/19/19 07:21 109/67 92 04/19/19 03:44 115/80 96 04/19/19 00:26 116/69 92 04/18/19 20:27 141/68 99 04/18/19 19:14 93 04/18/19 16:33 145/86 92 04/18/19 14:43 04/18/19 12:00 98 - Physical Examination General: No Apparent Distress HEENT: Positive: PERRL Neck: Positive: trachea midline Cardiac: Positive: Reg Rate and Rhythm Lungs: Positive: Decreased Breath Sounds Neuro: Positive: Grossly Intact Extremities: Absent: edema - Labs and Meds CBC 04/19/19 Range/Units 06:28 WBC 8.9 (4.5-11.0) K/mm3 RBC 4.68 (3.65-5.03) M/mm3 Hgb 12.1 (10.1-14.3) gm/dl Hct 37.5 (30.3-42.9) % Plt Count 365 (140-440) K/mm3 Lymph # 2.3 (1.2-5.4) K/mm3 [place] # 0.5 (0.0-0.8) K/mm3 Eos # 0.1 (0.0-0.4) K/mm3 Baso # 0.0 (0.0-0.1) K/mm3 Comprehensive Metabolic Panel 04/19/19 Range/Units 06:28 Sodium 142 (137-145) mmol/L Potassium 3.8 (3.6-5.0) mmol/L Chloride 101.7 (98-107) mmol/L Carbon Dioxide 22 (22-30) mmol/L BUN 21 H (7-17) mg/dL Creatinine 1.3 H (0.7-1.2) mg/dL Glucose 107 H (65-100) mg/dL Calcium 8.8 (8.4-10.2) mg/dL <RAFIQ TENORIO - Last Filed: 04/20/19 10:24> Assessment and Plan Has seen and evaluated the patient and agree with the assessment and plan. Patient is presenting with COPD exacerbation, diabetes, and hypertension. Patient has an echocardiogram that does show mildly decreased left ventricular ejection fraction 40-45%. Patient is a recent stress test that shows no s ignificant disease. At this time patient does appear euvolemic. We'll initiate the patient on a beta emily for treatment of mild systolic dysfunction. Objective Vital Signs Temp Pulse Pulse Resp Resp BP BP 04/20/19 09:31 116 H 145/89 04/20/19 08:02 98.2 F 18 145/89 04/20/19 03:39 99.1 F 97 H 18 149/86 04/20/19 01:35 84 18 04/20/19 00:00 92 H 04/19/19 23:45 98.1 F 100 H 18 149/82 04/19/19 19:21 98.4 F 101 H 20 147/98 04/19/19 17:46 85 99/60 04/19/19 12:39 98.1 F 90 18 111/63 04/19/19 10:28 100 H 134/77 Pulse Ox 04/20/19 09:31 04/20/19 08:02 04/20/19 03:39 93 04/20/19 01:35 04/20/19 00:00 04/19/19 23:45 94 04/19/19 19:21 93 04/19/19 17:46 04/19/19 12:39 92 04/19/19 10:28 - Labs and Meds Comprehensive Metabolic Panel 04/20/19 Range/Units 03:12 Sodium 139 (137-145) mmol/L Potassium 3.7 (3.6-5.0) mmol/L Chloride 98.8 (98-107) mmol/L Carbon Dioxide 24 (22-30) mmol/L BUN 24 H (7-17) mg/dL Creatinine 1.3 H (0.7-1.2) mg/dL Glucose 118 H (65-100) mg/dL Calcium 9.1 (8.4-10.2) mg/dL
--- NOTE | 2019-04-19 16:12 | Progress Note ---
Assessment and Plan Assessment and plan: Acute COPD exacerbation - provide scheduled nebulizer breathing treatment and as needed, empiric steroid - Provide supplemental oxygen to keep oxygen saturation above 92% - Consider to consult pulmonary if no improvement in next 24 hours Congestive heart Failure ?? -BNP 3500 on admission -Monitor input and output. -placed on IV diuretics, supportive care -Cardiology consulted -Echocardiogram ordered coffee-ground emesis/N/V - GERD ? -H/H WNL (13.8/42.0) -continue to monitor H/H and transfuse as needed -etiology unclear -no plan for scope at this time per GI -continue PPI Hypertension -Home meds resumed -Monitor BP q shift Diabetes mellitus, diet controlled -Patient is not on any diabetes medication; -Accu-Chek achs - sliding scale insulin if needed h/o breast cancer - outpt f/u DVT prophylaxis -SCDs bilaterally -Patient ambulatory Brief History: Patient is a 63-year-old female with a past medical history of asthma, COPD, DM 2, breast cancer and COPD who presents to ER with complaints of headache, sore throat, diarrhea, nausea and shortness of breath x 3 days. Also have report of having coffee ground emesis History Interval history: Patient seen and examined medical records reviewed Patient complaints of worsening shortness of breath slightly improved since admission Mild increase in creatinine acute kidney injury Probably secondary to vasomotor nephropathy Patient did not have any new episodes of coffee-ground emesis However complaints of nausea Also has anxiety episodes Vital signs reviewed Hospitalist Physical - Constitutional Vitals: Temp Pulse Resp BP Pulse Ox 97.9 F 100 H 18 134/77 99 04/19/19 07:21 04/19/19 10:28 04/19/19 09:37 04/19/19 10:28 04/19/19 09:40 General appearance: Present: mild distress, well-nourished, obese (morbidly obese), other (anxious) - EENT Eyes: Present: PERRL, EOM intact - Neck Neck: Present: supple, normal ROM - Respiratory Respiratory effort: normal Respiratory: bilateral: diminished, negative: rales, rhonchi, wheezing - Cardiovascular Rhythm: regular Heart Sounds: Present: S1 & S2 - Extremities Extremities: no ischemia, No edema - Abdominal General gastrointestinal: soft, non-tender, non-distended, normal bowel sounds - Integumentary Integumentary: Present: clear, warm - Psychiatric Psychiatric: appropriate mood/affect, cooperative - Neurologic Neurologic: CNII-XII intact, moves all extremities JACQUELIN score - Jacquelin Score Age > 65: (0) No Aspirin use within the Past 7 Days: (0) No 3 or more CAD Risk Factors: (1) Yes 2 or more Angina events in past 24 hrs: (0) No Known CAD with more than 50% Stenosis: (0) No Elevated Cardiac Markers: (0) No ST Deviation Greater than 0.5mm: (0) No JACQUELIN Score: 1 Results - Labs CBC & Chem 7: 04/19/19 06:28 04/19/19 06:28 Labs: Laboratory Last Values WBC 8.9 K/mm3 (4.5-11.0) 04/19/19 06:28 RBC 4.68 M/mm3 (3.65-5.03) 04/19/19 06:28 Hgb 12.1 gm/dl (10.1-14.3) 04/19/19 06:28 Hct 37.5 % (30.3-42.9) 04/19/19 06:28 MCV 80 fl (79-97) 04/19/19 06:28 MCH 26 pg (28-32) L 04/19/19 06:28 MCHC 32 % (30-34) 04/19/19 06:28 RDW 17.3 % (13.2-15.2) H 04/19/19 06:28 Plt Count 365 K/mm3 (140-440) 04/19/19 06:28 Lymph % (Auto) 25.5 % (13.4-35.0) 04/19/19 06:28 [place] % (Auto) 5.1 % (0.0-7.3) 04/19/19 06:28 Eos % (Auto) 0.7 % (0.0-4.3) 04/19/19 06:28 Baso % (Auto) 0.4 % (0.0-1.8) 04/19/19 06:28 Lymph # 2.3 K/mm3 (1.2-5.4) 04/19/19 06:28 [place] # 0.5 K/mm3 (0.0-0.8) 04/19/19 06:28 Eos # 0.1 K/mm3 (0.0-0.4) 04/19/19 06:28 Baso # 0.0 K/mm3 (0.0-0.1) 04/19/19 06:28 Seg Neutrophils % 68.3 % (40.0-70.0) 04/19/19 06:28 Seg Neutrophils # 6.1 K/mm3 (1.8-7.7) 04/19/19 06:28 D-Dimer 469.29 ng/mlDDU (0-234) H 04/17/19 21:37 Sodium 142 mmol/L (137-145) 04/19/19 06:28 Potassium 3.8 mmol/L (3.6-5.0) 04/19/19 06:28 Chloride 101.7 mmol/L (98-107) 04/19/19 06:28 Carbon Dioxide 22 mmol/L (22-30) 04/19/19 06:28 Anion Gap 22 mmol/L 04/19/19 06:28 BUN 21 mg/dL (7-17) H 04/19/19 06:28 Creatinine 1.3 mg/dL (0.7-1.2) H 04/19/19 06:28 Estimated GFR 50 ml/min 04/19/19 06:28 BUN/Creatinine Ratio 16 % 04/19/19 06:28 Glucose 107 mg/dL (65-100) H 04/19/19 06:28 POC Glucose 90 (70-105) 04/19/19 12:01 Calcium 8.8 mg/dL (8.4-10.2) 04/19/19 06:28 NT-Pro-B Natriuret Pep 3480 pg/mL (0-900) H 04/17/19 18:32 Influenza A (Rapid) Negative (Negative) 04/17/19 18:05 Influenza B (Rapid) Negative (Negative) 04/17/19 18:05 Group A Strep Rapid Negative (Negative) 04/17/19 23:57 Active Medications - Current Medications Current Medications: Generic Name Dose Route Start Last Admin Trade Name Freq PRN Reason Stop Dose Admin Acetaminophen 650 mg 04/18/19 00:12 04/18/19 09:52 Tylenol PO 650 mg Q4H PRN Administration Pain MILD(1-3)/Fever >100.5/CUELLAR Albuterol 2.5 mg 04/18/19 00:12 04/19/19 09:37 Proventil IH 2.5 mg Q4HRT PRN Administration Shortness Of Breath Furosemide 40 mg 04/18/19 06:00 04/19/19 05:02 Lasix IV 40 mg BID@0600,1800 RUTH Administration Hydralazine HCl 10 mg 04/18/19 06:04 Apresoline IV Q4H PRN Hypertension Hydromorphone HCl 0.25 mg 04/18/19 00:12 04/19/19 10:17 Dilaudid IV 0.25 mg Q3H PRN Administration Pain, Moderate (4-6) Ondansetron HCl 4 mg 04/18/19 00:12 04/19/19 09:26 Zofran IV 4 mg Q8H PRN Administration Nausea And Vomiting Pantoprazole Sodium 40 mg 04/19/19 10:00 04/19/19 09:37 Protonix PO 40 mg BID RUTH Administration Potassium Chloride 20 meq 04/18/19 10:00 04/19/19 09:37 K-Dur PO 20 meq QDAY RUTH Administration Sodium Chloride 10 ml 04/18/19 10:00 04/19/19 09:38 Sodium Chloride Flush Syringe 10 Ml IV 10 ml BID RUTH Administration Sodium Chloride 10 ml 04/18/19 00:12 Sodium Chloride Flush Syringe 10 Ml IV PRN PRN LINE FLUSH
--- NOTE | 2019-04-19 19:16 | Consultation ---
History of Present Illness Consult date: 04/19/19 Reason for consult: dyspnea, cough (bilatera), asthma, COPD, other (bilateral wheezing) History of present illness: Pulmonary and Critical Care Consultation Dr. Ewing Thank you for asking us to participate in the care of this patient Patient is a 63-year-old female with a past medical history of asthma, COPD, DM 2, breast cancer (remission) and COPD who presents to ER with complaints of headache, sore throat, diarrhea, nausea and shortness of breath x 3 days. Patient states she has been finding it more difficult to complete activities as she is getting more winded with each step this evening. Patient also reports not been able to keep food down over the last couple days due to increasing nausea. Patient is awake and alert. Patient endorses wheezing and productive cough. Patient is currently on 3L O2 via nasal canula with O2 saturation of 99%. Patient is afebrile with no leukocytosis. Patient quit smoking and has history of smoking for 25 years. Denies alcohol use. 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 No interval change. Chest CT Reported 04/17/2019 No evidence of acute PTE. Multiple small incidental solid nodules in the right middle and lower lobe, the largest of which measures 5 mm. Mild coronary artery calcification Past History Past Medical History: cancer (Breast (in remission)), COPD, hypertension, other (see HPI) Past Surgical History: cholecystectomy, Other (Right mastectomy; colonoscopy 04/2018) Family history: hypertension Medications and Allergies Allergies Allergy/AdvReac Type Severity Reaction Status Date / Time morphine AdvReac HALLUCINATI Verified 10/11/14 10:18 ONS Home Medications Medication Instructions Recorded Confirmed Last Taken Type AtorvaSTATin [Lipitor] 40 mg PO QHS 04/18/19 04/18/19 Unknown History Ferrous Sulfate [Iron 325 MG] 325 mg PO DAILY 04/18/19 04/18/19 Unknown History Fluticasone Propion/Salmeterol 250 puff PO BID 04/18/19 04/18/19 Unknown History [[place]ela 250-50 Inhub] Omeprazole 40 mg PO DAILY 04/18/19 04/18/19 Unknown History hydroCHLOROthiazide 25 mg PO HS 04/18/19 04/18/19 Unknown History [Hydrochlorothiazide] Active Meds: Active Medications Acetaminophen (Tylenol) 650 mg PO Q4H PRN PRN Reason: Pain MILD(1-3)/Fever >100.5/CUELLAR Last Admin: 04/18/19 09:52 Dose: 650 mg Documented by: Albuterol (Proventil) 2.5 mg IH Q4HRT PRN PRN Reason: Shortness Of Breath Last Admin: 04/19/19 09:37 Dose: 2.5 mg Documented by: Furosemide (Lasix) 40 mg IV BID@0600,1800 [facility] Last Admin: 04/19/19 17:45 Dose: Not Given Documented by: Hydralazine HCl (Apresoline) 10 mg IV Q4H PRN PRN Reason: Hypertension Hydromorphone HCl (Dilaudid) 0.25 mg IV Q3H PRN PRN Reason: Pain, Moderate (4-6) Last Admin: 04/19/19 10:17 Dose: 0.25 mg Documented by: Ondansetron HCl (Zofran) 4 mg IV Q8H PRN PRN Reason: Nausea And Vomiting Last Admin: 04/19/19 09:26 Dose: 4 mg Documented by: Pantoprazole Sodium (Protonix) 40 mg PO BID [facility] Last Admin: 04/19/19 09:37 Dose: 40 mg Documented by: Potassium Chloride (K-Dur) 20 meq PO QDAY [facility] Last Admin: 04/19/19 09:37 Dose: 20 meq Documented by: Sodium Chloride (Sodium Chloride Flush Syringe 10 Ml) 10 ml IV BID [facility] Last Admin: 04/19/19 09:38 Dose: 10 ml Documented by: Sodium Chloride (Sodium Chloride Flush Syringe 10 Ml) 10 ml IV PRN PRN PRN Reason: LINE FLUSH Review of Systems All systems: negative Physical Examination Vital signs: Vital Signs Temp Pulse Resp BP Pulse Ox 99 F 138 H 24 137/86 94 04/17/19 17:59 04/17/19 17:59 04/17/19 17:59 04/17/19 17:59 04/17/19 17:59 General appearance: no acute distress, alert Eyes: non-icteric ENT: oropharynx moist Neck: supple, no JVD Effort: mildly labored Ascultation: Bilateral: wheezes Cardiovascular: regular rate and rhythm Gastrointestinal: normoactive bowel sounds, soft, non-tender, non-distended Integumentary: normal Extremities: no cyanosis Musculoskeletal: no deformities normal mental status, non-focal exam, pupils equal and round mood appropriate, affect normal Results - Laboratory Findings CBC and BMP: 04/19/19 06:28 04/19/19 06:28 PT/INR, D-dimer D-Dimer 469.29 ng/mlDDU (0-234) H 04/17/19 21:37 Abnormal lab findings: Abnormal Labs 04/17/19 04/17/19 04/17/19 18:32 18:32 18:32 RBC 5.25 H MCH 26 L RDW 16.9 H Eos % (Auto) 5.1 H D-Dimer Carbon Dioxide 19 L BUN Creatinine Glucose 123 H POC Glucose NT-Pro-B Natriuret Pep 3480 H 04/17/19 04/18/19 04/18/19 21:37 11:18 16:23 RBC MCH RDW Eos % (Auto) D-Dimer 469.29 H Carbon Dioxide BUN Creatinine Glucose POC Glucose 143 H 190 H NT-Pro-B Natriuret Pep 04/18/19 04/19/19 04/19/19 21:08 06:28 06:28 RBC MCH 26 L RDW 17.3 H Eos % (Auto) D-Dimer Carbon Dioxide BUN 21 H Creatinine 1.3 H Glucose 107 H POC Glucose 133 H NT-Pro-B Natriuret Pep 04/19/19 04/19/19 07:31 16:28 RBC MCH RDW Eos % (Auto) D-Dimer Carbon Dioxide BUN Creatinine Glucose POC Glucose 107 H 142 H NT-Pro-B Natriuret Pep - Diagnostic Findings Chest x-ray: report reviewed, image reviewed CT scan - chest: report reviewed, image reviewed Additional studies: Chest X-ray Reported 04/17/2019 No acute findings. No interval change. Chest CT Reported 04/17/2019 No evidence of acute PTE. Multiple small incidental solid nodules in the right middle and lower lobe, the largest of which measures 5 mm. Mild coronary artery calcification Assessment and Plan Patient is a 63-year-old female with a past medical history of asthma, COPD, DM 2, breast cancer (remission) and COPD who presents to ER with complaints of headache, sore throat, diarrhea, nausea and shortness of breath x 3 days. Patient states she has been finding it more difficult to complete activities as she is getting more winded with each step this evening. Patient also reports not been able to keep food down over the last couple days due to increasing nausea. Patient is awake and alert. Patient endorses wheezing and productive cough. Patient is currently on 3L O2 via nasal canula with O2 saturation of 99%. Haydee hartley is afebrile with no leukocytosis. Patient quit smoking and has history of smoking for 25 years. Denies alcohol use. 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 No interval change. Chest CT Reported 04/17/2019 No evidence of acute PTE. Multiple small incidental solid nodules in the right middle and lower lobe, the largest of which measures 5 mm. Mild coronary artery calcification - Patient Problems (1) COPD exacerbation Current Visit: Yes Status: Acute Plan to address problem: 1. On 3L O2 via nasal canula 2. Albuterol/Atrovent aerosol treatment q6 hours PRN shortness of breath 3. Brovanna and Budesonide q12 hours 4. Continue Protonix 5. Recommend DVT prophylaxis (2) CHF (congestive heart failure) Current Visit: Yes Status: Acute Qualifiers: Heart failure type: unspecified Heart failure chronicity: unspecified Qualified Code(s): I50.9 - Heart failure, unspecified Plan to address problem: Management as per Cardiology (3) Morbidly obese Current Visit: Yes Status: Acute Plan to address problem: Recommend to lose weight Diet and exercise Recommend sleep study as outpatient
[2019-04-20] MEDS: ALBUTEROL 2.5 MG/3 ML NEBU IH PRN ×3 (01:35→15:28)
[2019-04-20 05:00] LABS: Calcium 9.1 mg/dL (8.4-10.2)
[2019-04-20] MEDS: FUROSEMIDE 40 MG/4 ML INJ IV SCH ×2 (05:35→17:49)
--- NOTE | 2019-04-20 09:22 | Progress Note ---
<EDNA NGUYEN - Last Filed: 04/20/19 12:17> Assessment and Plan COPD exacerbation N/V Diabetes Hypertension An echocardiogram this admission reports a mildly decreased LVEF 40-45%. Normal MPI 09/2018. LVEF 50% by echo 07/2018. Continue medical therapy for mild systolic dysfunction. Otherwise, conservative cardiac management. We will sign off. Subjective Date of service: 04/20/19 Principal diagnosis: coffee-ground emesis Interval history: Patient is resting in bed comfortably. Still with shortness of breath and active wheezing. Objective Vital Signs Temp Pulse Pulse Resp Resp BP BP 04/20/19 03:39 99.1 F 97 H 18 149/86 04/20/19 01:35 84 18 04/20/19 00:00 92 H 04/19/19 23:45 98.1 F 100 H 18 149/82 04/19/19 19:21 98.4 F 101 H 20 147/98 04/19/19 17:46 85 99/60 04/19/19 12:39 98.1 F 90 18 111/63 04/19/19 10:28 100 H 134/77 04/19/19 09:40 04/19/19 09:37 95 H 18 Pulse Ox 04/20/19 03:39 93 04/20/19 01:35 04/20/19 00:00 04/19/19 23:45 94 04/19/19 19:21 93 04/19/19 17:46 04/19/19 12:39 92 04/19/19 10:28 04/19/19 09:40 99 04/19/19 09:37 - Physical Examination General: No Apparent Distress HEENT: Positive: PERRL Neck: Positive: trachea midline Cardiac: Positive: Reg Rate and Rhythm Lungs: Positive: Decreased Breath Sounds, Wheezes Neuro: Positive: Grossly Intact Extremities: Absent: edema - Labs and Meds Comprehensive Metabolic Panel 04/20/19 Range/Units 03:12 Sodium 139 (137-145) mmol/L Potassium 3.7 (3.6-5.0) mmol/L Chloride 98.8 (98-107) mmol/L Carbon Dioxide 24 (22-30) mmol/L BUN 24 H (7-17) mg/dL Creatinine 1.3 H (0.7-1.2) mg/dL Glucose 118 H (65-100) mg/dL Calcium 9.1 (8.4-10.2) mg/dL <RAFIQ TENORIO - Last Filed: 04/21/19 11:08> Assessment and Plan I've seen and evaluated the patient and agree with the assessment and plan. Recommend continued medical therapy for treatment of mild left ventricular systolic dysfunction. Patient has a normal nuclear stress test in September 2018. No further cardiac recommendations at this time thank you for the consult please reconsult as needed. Objective Vital Signs Temp Pulse Pulse Resp Resp BP BP 04/21/19 07:30 97.7 F 86 18 125/77 04/21/19 07:23 04/21/19 07:21 94 H 18 04/21/19 04:05 98.9 F 89 18 139/84 04/20/19 22:49 98.1 F 91 H 18 125/103 04/20/19 21:56 84 148/88 04/20/19 20:13 98.1 F 84 18 148/88 04/20/19 19:53 88 04/20/19 19:27 04/20/19 19:25 94 H 18 04/20/19 17:49 99.3 F 84 20 129/69 04/20/19 15:30 98 H 20 04/20/19 12:21 99.3 F 81 18 138/77 Pulse Ox 04/21/19 07:30 94 04/21/19 07:23 97 04/21/19 07:21 04/21/19 04:05 97 04/20/19 22:49 94 04/20/19 21:56 04/20/19 20:13 96 04/20/19 19:53 04/20/19 19:27 96 04/20/19 19:25 04/20/19 17:49 98 04/20/19 15:30 04/20/19 12:21 96
[2019-04-20] MEDS: carvediloL 6.25 MG TAB PO SCH ×2 (09:31→21:56)
[2019-04-20] MEDS: POTASSIUM CHLORIDE ER 20 MEQ TAB PO SCH (09:31)
[2019-04-20] MEDS: PANTOPRAZOLE 40 MG TAB PO SCH ×2 (09:31→21:56)
--- NOTE | 2019-04-20 11:59 | Gastroenterology Progress Note ---
Assessment and Plan 1.coffee-ground emesis-resolved 2.N/V-resolved -H/H WNL-stable -continue to monitor H/H and transfuse as needed -no active signs of bleeding overnight or this am -vomiting resolved; tolerating liquids, No abd pain. -no plan for scope at this time -continue PPI -advance as tolerated -optimize glycemic control -limit narcotics for this may exacerbate symptoms -continue antiemetics and supportive care -consider low dose Ativan for recurrent vomiting (patient with hx of anxiety and has used lorazepam in the distant past) -patient to f/u in clinic upon d/c for further workup (possible EGD) as outpatient if symptoms persist once respiratory status is stable -no further GI recommendations at this time -will sign off, please call if needed Subjective Date of service: 04/20/19 Principal diagnosis: coffee-ground emesis Interval history: No acute distress or active signs of bleeding. Admits to coughing up phlegm which makes her gag but no vomiting. Tolerating liquids. Objective - Constitutional Vitals: Temp Pulse Resp BP Pulse Ox 98.2 F 104 H 18 145/89 96 04/20/19 08:02 04/20/19 09:58 04/20/19 09:58 04/20/19 09:31 04/20/19 10:00 General appearance: no acute distress - EENT Eyes: PERRL, EOM intact ENT: hearing intact - Respiratory Respiratory effort: normal Respiratory: bilateral: other (coarse) - Cardiovascular Rhythm: other (tachycardia) - Gastrointestinal General gastrointestinal: Present: soft, non-tender, non-distended, normal bowel sounds - Neurologic Neurological: alert and oriented x3 - Labs CBC & Chem 7: 04/19/19 06:28 04/20/19 03:12 Labs: Laboratory Results - last 24 hr 04/19/19 04/19/19 04/19/19 12:01 16:28 21:17 Sodium Potassium Chloride Carbon Dioxide Anion Gap BUN Creatinine Estimated GFR BUN/Creatinine Ratio Glucose POC Glucose 90 142 H 104 Calcium 04/20/19 04/20/19 03:12 08:12 Sodium 139 Potassium 3.7 Chloride 98.8 Carbon Dioxide 24 Anion Gap 20 BUN 24 H Creatinine 1.3 H Estimated GFR 50 BUN/Creatinine Ratio 18 Glucose 118 H POC Glucose 109 H Calcium 9.1
[2019-04-20] MEDS: ACETAMINOPHEN 325 MG TAB PO PRN (16:37)
--- NOTE | 2019-04-20 16:53 | Progress Note ---
Assessment and Plan Patient is a 63-year-old female with a past medical history of asthma, COPD, DM 2, breast cancer (remission) and COPD who presents to ER with complaints of headache, sore throat, diarrhea, nausea and shortness of breath x 3 days. Patie nt states she has been finding it more difficult to complete activities as she is getting more winded with each step this evening. Patient also reports not been able to keep food down over the last couple days due to increasing nausea. Patient is awake and alert. Patient endorses wheezing and productive cough. Patient is currently on 4L O2 via nasal canula with O2 saturation of 96%. Obtaining blood gases on room air. Patient is afebrile with no leukocytosis. Patient quit smoking and has history of smoking for 25 years. Denies alcohol use. 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 Chest X-ray Reported 04/17/2019 No acute findings. No interval change. Chest CT Reported 04/17/2019 No evidence of acute PTE. Multiple small incidental solid nodules in the right middle and lower lobe, the largest of which measures 5 mm. Mild coronary artery calcification - Patient Problems (1) COPD exacerbation Current Visit: Yes Status: Acute Plan to address problem: 1. On 4L O2 via nasal canula 2. Albuterol/Atrovent aerosol treatment q6 hours PRN shortness of breath 3. Recommend Brovanna and Budesonide q12 hours 4. Continue Protonix 5. Recommend DVT prophylaxis (2) CHF (congestive heart failure) Current Visit: Yes Status: Acute Qualifiers: Heart failure type: unspecified Heart failure chronicity: unspecified Qualified Code(s): I50.9 - Heart failure, unspecified Plan to address problem: Management as per Cardiology (3) Morbidly obese Current Visit: Yes Status: Acute Plan to address problem: Recommend to lose weight Diet and exercise Recommend sleep study as outpatient (4) Pulmonary nodules Current Visit: Yes Status: Acute Plan to address problem: CTA of chest report small pulmonary nodules in the right middle and lower lobe. Recommend PET scan as an outpatient. Counseled to stop smoking. Stressed the importance of follow-up. Subjective Date of service: 04/20/19 Principal diagnosis: coffee-ground emesis Interval history: Patient is a 63-year-old female with a past medical history of asthma, COPD, DM 2, breast cancer (remission) and COPD who presents to ER with complaints of headache, sore throat, diarrhea, nausea and shortness of breath x 3 days. Patient states she has been finding it more difficult to complete activities as she is getting more winded with each step this evening. Patient also reports not been able to keep food down over the last couple days due to increasing nausea. Patient is awake and alert. Patient endorses wheezing and productive cough. Patient is currently on 4L O2 via nasal canula with O2 saturation of 96%. Obtaining blood gases on room air. Patient is afebrile with no leukocytosis. Patient quit smoking and has history of smoking for 25 years. Denies alcohol use. 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 Chest X-ray Reported 04/17/2019 No acute findings. No interval change. Chest CT Reported 04/17/2019 No evidence of acute PTE. Multiple small incidental solid nodules in the right middle and lower lobe, the largest of which measures 5 mm. Mild coronary artery calcification Objective Vital Signs - 12hr 04/20/19 04/20/19 04/20/19 08:02 09:31 09:58 Temperature 98.2 F Pulse Rate 116 H Pulse Rate [ 104 H Bilateral] Respiratory 18 Rate Respiratory 18 Rate [Bilateral ] Blood Pressure 145/89 145/89 O2 Sat by Pulse Oximetry 04/20/19 04/20/19 10:00 12:21 Temperature 99.3 F Pulse Rate 96 H 81 Pulse Rate [ Bilateral] Respiratory 18 Rate Respiratory Rate [Bilateral ] Blood Pressure 138/77 O2 Sat by Pulse 96 96 Oximetry Constitutional: no acute distress, alert Eyes: non-icteric ENT: oropharynx moist Neck: supple, no JVD Effort: mildly labored Ascultation: Bilateral: wheezes Cardiovascular: regular rate and rhythm Gastrointestinal: normoactive bowel sounds, soft, non-tender, non-distended Integumentary: normal Extremities: no cyanosis Neurologic: normal mental status, non-focal exam, pupils equal and round Psychiatric: mood appropriate, affect normal CBC and BMP: 04/19/19 06:28 04/20/19 03:12 ABG, PT/INR, D-dimer: PT/INR, D-dimer D-Dimer 469.29 ng/mlDDU (0-234) H 04/17/19 21:37 Abnormal lab findings: Abnormal Labs 04/17/19 04/17/1920 18:32 18:32 18:32 RBC 5.25 H MCH 26 L RDW 16.9 H Eos % (Auto) 5.1 H D-Dimer Carbon Dioxide 19 L BUN Creatinine Glucose 123 H POC Glucose NT-Pro-B Natriuret Pep 3480 H 04/17/19 04/18/19 04/18/19 21:37 11:18 16:23 RBC MCH RDW Eos % (Auto) D-Dimer 469.29 H Carbon Dioxide BUN Creatinine Glucose POC Glucose 143 H 190 H NT-Pro-B Natriuret Pep 04/18/19 04/19/19 04/19/19 21:08 06:28 06:28 RBC MCH 26 L RDW 17.3 H Eos % (Auto) D-Dimer Carbon Dioxide BUN 21 H Creatinine 1.3 H Glucose 107 H POC Glucose 133 H NT-Pro-B Natriuret Pep 04/19/19 04/19/19 04/20/19 07:31 16:28 03:12 RBC MCH RDW Eos % (Auto) D-Dimer Carbon Dioxide BUN 24 H Creatinine 1.3 H Glucose 118 H POC Glucose 107 H 142 H NT-Pro-B Natriuret Pep 04/20/19 08:12 RBC MCH RDW Eos % (Auto) D-Dimer Carbon Dioxide BUN Creatinine Glucose POC Glucose 109 H NT-Pro-B Natriuret Pep
--- NOTE | 2019-04-20 18:28 | Progress Note ---
Assessment and Plan Assessment and plan: --Acute COPD exacerbation with bronchitis Oxygen titrate O2 sats more than 90% , nebulizers IV steroids , antibiotics , supportive care --Acute systolic Congestive heart Failure mild Echocardiogram 40-45% EF Continue heart failure medications Cardiology following --coffee-ground emesis/N/V - GERD ? -H/H WNL (13.8/42.0) No new episodes, GI has no plans of Scoping, supportive care -- Hypertension Continue current antihypertensives and when necessary medications --Diabetes mellitus, diet controlled Accu-Chek sliding scale coverage ADA diet Insulin as needed --h/o breast cancer; outpt f/u -- DVT prophylaxis; he SCDs Care reviewed with the patient and her nurse Monitor closely and adjust management as needed History Interval history: Patient continues to have shortness of breath And increasing Alert awake oriented, in mild distress Vital signs reviewed Hospitalist Physical - Constitutional Vitals: Temp Pulse Resp BP Pulse Ox 99.3 F 84 20 129/69 98 04/20/19 17:49 04/20/19 17:49 04/20/19 17:49 04/20/19 17:49 04/20/19 17:49 General appearance: Present: mild distress, well-nourished, obese (morbidly obese), other (anxious) - EENT Eyes: Present: PERRL, EOM intact - Neck Neck: Present: supple, normal ROM - Respiratory Respiratory effort: normal Respiratory: bilateral: diminished, wheezing, negative: rales, rhonchi - Cardiovascular Rhythm: regular Heart Sounds: Present: S1 & S2 - Extremities Extremities: no ischemia, No edema - Abdominal General gastrointestinal: soft, non-tender, non-distended, normal bowel sounds - Integumentary Integumentary: Present: clear, warm - Psychiatric Psychiatric: appropriate mood/affect, cooperative - Neurologic Neurologic: CNII-XII intact, moves all extremities JACQUELIN score - Jacquelin Score Age > 65: (0) No Aspirin use within the Past 7 Days: (0) No 3 or more CAD Risk Factors: (1) Yes 2 or more Angina events in past 24 hrs: (0) No Known CAD with more than 50% Stenosis: (0) No Elevated Cardiac Markers: (0) No ST Deviation Greater than 0.5mm: (0) No JACQUELIN Score: 1 Results - Labs CBC & Chem 7: 04/19/19 06:28 04/20/19 03:12 Labs: Laboratory Last Values WBC 8.9 K/mm3 (4.5-11.0) 04/19/19 06:28 RBC 4.68 M/mm3 (3.65-5.03) 04/19/19 06:28 Hgb 12.1 gm/dl (10.1-14.3) 04/19/19 06:28 Hct 37.5 % (30.3-42.9) 04/19/19 06:28 MCV 80 fl (79-97) 04/19/19 06:28 MCH 26 pg (28-32) L 04/19/19 06:28 MCHC 32 % (30-34) 04/19/19 06:28 RDW 17.3 % (13.2-15.2) H 04/19/19 06:28 Plt Count 365 K/mm3 (140-440) 04/19/19 06:28 Lymph % (Auto) 25.5 % (13.4-35.0) 04/19/19 06:28 Weber % (Auto) 5.1 % (0.0-7.3) 04/19/19 06:28 Eos % (Auto) 0.7 % (0.0-4.3) 04/19/19 06:28 Baso % (Auto) 0.4 % (0.0-1.8) 04/19/19 06:28 Lymph # 2.3 K/mm3 (1.2-5.4) 04/19/19 06:28 Weber # 0.5 K/mm3 (0.0-0.8) 04/19/19 06:28 Eos # 0.1 K/mm3 (0.0-0.4) 04/19/19 06:28 Baso # 0.0 K/mm3 (0.0-0.1) 04/19/19 06:28 Seg Neutrophils % 68.3 % (40.0-70.0) 04/19/19 06:28 Seg Neutrophils # 6.1 K/mm3 (1.8-7.7) 04/19/19 06:28 D-Dimer 469.29 ng/mlDDU (0-234) H 04/17/19 21:37 Sodium 139 mmol/L (137-145) 04/20/19 03:12 Potassium 3.7 mmol/L (3.6-5.0) 04/20/19 03:12 Chloride 98.8 mmol/L (98-107) 04/20/19 03:12 Carbon Dioxide 24 mmol/L (22-30) 04/20/19 03:12 Anion Gap 20 mmol/L 04/20/19 03:12 BUN 24 mg/dL (7-17) H 04/20/19 03:12 Creatinine 1.3 mg/dL (0.7-1.2) H 04/20/19 03:12 Estimated GFR 50 ml/min 04/20/19 03:12 BUN/Creatinine Ratio 18 % 04/20/19 03:12 Glucose 118 mg/dL (65-100) H 04/20/19 03:12 POC Glucose 106 (70-105) H 04/20/19 17:03 Calcium 9.1 mg/dL (8.4-10.2) 04/20/19 03:12 NT-Pro-B Natriuret Pep 3480 pg/mL (0-900) H 04/17/19 18:32 Influenza A (Rapid) Negative (Negative) 04/17/19 18:05 Influenza B (Rapid) Negative (Negative) 04/17/19 18:05 Group A Strep Rapid Negative (Negative) 04/17/19 23:57 Active Medications - Current Medications Current Medications: Generic Name Dose Route Start Last Admin Trade Name Freq PRN Reason Stop Dose Admin Acetaminophen 650 mg 04/18/19 00:12 04/20/19 16:37 Tylenol PO 650 mg Q4H PRN Administration Pain MILD(1-3)/Fever >100.5/CUELLAR Albuterol 2.5 mg 04/18/19 00:12 04/20/19 15:28 Proventil IH 2.5 mg Q4HRT PRN Administration Shortness Of Breath Arformoterol Tartrate 15 mcg 04/20/19 20:00 Brovana Nebu IH Q12HRT RTUH Budesonide 0.5 mg 04/20/19 20:00 Pulmicort IH Q12HRT RUTH Carvedilol 6.25 mg 04/20/19 10:00 04/20/19 09:31 Coreg PO 6.25 mg BID RUTH Administration Furosemide 40 mg 04/18/19 06:00 04/20/19 17:49 Lasix IV 40 mg BID@0600,1800 RUTH Administration Hydralazine HCl 10 mg 04/18/19 06:04 Apresoline IV Q4H PRN Hypertension Hydromorphone HCl 0.25 mg 04/18/19 00:12 04/19/19 10:17 Dilaudid IV 0.25 mg Q3H PRN Administration Pain, Moderate (4-6) Ondansetron HCl 4 mg 04/18/19 00:12 04/19/19 21:02 Zofran IV 4 mg Q8H PRN Administration Nausea And Vomiting Pantoprazole Sodium 40 mg 04/19/19 10:00 04/20/19 09:31 Protonix PO 40 mg BID RUTH Administration Potassium Chloride 20 meq 04/18/19 10:00 04/20/19 09:31 K-Dur PO 20 meq QDAY RUTH Administration Sodium Chloride 10 ml 04/18/19 10:00 04/20/19 09:32 Sodium Chloride Flush Syringe 10 Ml IV 10 ml BID RUTH Administration Sodium Chloride 10 ml 04/18/19 00:12 Sodium Chloride Flush Syringe 10 Ml IV PRN PRN LINE FLUSH
[2019-04-20] MEDS: ARFORMOTEROL 15 MCG/2 ML NEBU IH SCH (19:24)
[2019-04-20] MEDS: BUDESONIDE 0.5 MG/2 ML NEBU IH SCH (19:24)
[2019-04-21] MEDS: FUROSEMIDE 40 MG/4 ML INJ IV SCH ×2 (06:08→19:11)
[2019-04-21] MEDS: BUDESONIDE 0.5 MG/2 ML NEBU IH SCH ×2 (07:19→19:24)
[2019-04-21] MEDS: ARFORMOTEROL 15 MCG/2 ML NEBU IH SCH ×2 (07:19→19:24)
[2019-04-21] MEDS: carvediloL 6.25 MG TAB PO SCH ×2 (11:10→21:54)
[2019-04-21] MEDS: PANTOPRAZOLE 40 MG TAB PO SCH ×2 (11:11→21:53)
[2019-04-21] MEDS: POTASSIUM CHLORIDE ER 20 MEQ TAB PO SCH (11:11)
--- NOTE | 2019-04-21 13:07 | Progress Note ---
Assessment and Plan Pulmonary nodules Acute COPD exacerbation Coffee ground emesis CHF (congestive heart failure) Morbidly obese - quiock steroid taper for wheezing / COPD - outpatient f/up with risk factor stratification for sub-centimeter pulmonary nodules - continue supplemental oxygen as needed to keep O2 sat's > 90% - continue bronchodilators (GLORIA & LABA) with pulmonary hygiene per RT - continue inhaled corticosteroids - continue diuresis for CHF and adjust per cardiology team - accuchecks with SSI for target BG < 180 mg/dl - continue GI evaluation for coffee grounds emesis (resolved) - PT/OT as tolerated - mobility protocols for pressure ulcer prophylaxis - GI & VTE prophylaxis - tobacco abstinence strongly counseled at bedside - Flu & Pneumovax addressed per protocol ... re-evaluate in am & prn Subjective Date of service: 04/21/19 Principal diagnosis: coffee-ground emesis Interval history: Patient is seen today for: Pulmonary nodules; Acute COPD exacerbation; Coffee ground emesis; CHF (congestive heart failure); Morbidly obese Seen and examined at bedside; 24hour events reviewed; nursing and respiratory care staff consulted; no adverse overnight events reported to me; resting in bed; still SOB and wheezing; getting a breathing treatment; denies acute chest pains; no hemoptysis Objective Vital Signs - 12hr 04/21/19 04/21/19 04/21/19 04:05 07:21 07:23 Temperature 98.9 F Pulse Rate 89 Pulse Rate [ 94 H Bilateral] Respiratory 18 Rate Respiratory 18 Rate [Bilateral ] Blood Pressure 139/84 O2 Sat by Pulse 97 97 Oximetry 04/21/19 04/21/19 07:30 12:12 Temperature 97.7 F 98.0 F Pulse Rate 86 97 H Pulse Rate [ Bilateral] Respiratory 18 18 Rate Respiratory Rate [Bilateral ] Blood Pressure 125/77 108/62 O2 Sat by Pulse 94 89 Oximetry Constitutional: alert, appears uncomfortable, other (elderly looking obese AAF, normocephalic with mildly increased respiratory effort at rest) Eyes: non-icteric ENT: oropharynx moist Neck: supple, no JVD, other (+ large neck circumference) Effort: mildly labored Ascultation: Bilateral: wheezes (expiratory), rhonchi Percussion: Bilateral: not dull Cardiovascular: regular rate and rhythm Gastrointestinal: normoactive bowel sounds, soft, non-tender, non-distended Integumentary: normal Extremities: no cyanosis, pulses normal, no ischemia or petechiae Neurologic: normal mental status, non-focal exam, pupils equal and round, CN II- XII normal Psychiatric: anxious CBC and BMP: 04/19/19 06:28 04/20/19 03:12 ABG, PT/INR, D-dimer: PT/INR, D-dimer D-Dimer 469.29 ng/mlDDU (0-234) H 04/17/19 21:37 Abnormal lab findings: Abnormal Labs 04/17/19 04/17/19 04/17/19 18:32 18:32 18:32 RBC 5.25 H MCH 26 L RDW 16.9 H Eos % (Auto) 5.1 H D-Dimer Carbon Dioxide 19 L BUN Creatinine Glucose 123 H POC Glucose NT-Pro-B Natriuret Pep 3480 H 04/17/19 04/18/19 04/18/19 21:37 11:18 16:23 RBC MCH RDW Eos % (Auto) D-Dimer 469.29 H Carbon Dioxide BUN Creatinine Glucose POC Glucose 143 H 190 H NT-Pro-B Natriuret Pep 04/18/19 04/19/19 04/19/19 21:08 06:28 06:28 RBC MCH 26 L RDW 17.3 H Eos % (Auto) D-Dimer Carbon Dioxide BUN 21 H Creatinine 1.3 H Glucose 107 H POC Glucose 133 H NT-Pro-B Natriuret Pep 04/19/19 04/19/19 04/20/19 07:31 16:28 03:12 RBC MCH RDW Eos % (Auto) D-Dimer Carbon Dioxide BUN 24 H Creatinine 1.3 H Glucose 118 H POC Glucose 107 H 142 H NT-Pro-B Natriuret Pep 04/20/19 04/20/19 04/20/19 08:12 17:03 21:55 RBC MCH RDW Eos % (Auto) D-Dimer Carbon Dioxide BUN Creatinine Glucose POC Glucose 109 H 106 H 122 H NT-Pro-B Natriuret Pep 04/21/19 07:41 RBC MCH RDW Eos % (Auto) D-Dimer Carbon Dioxide BUN Creatinine Glucose POC Glucose 110 H NT-Pro-B Natriuret Pep CT scan - chest: image reviewed (negative for large order P.E.) Allied health notes reviewed: nursing
[2019-04-21] MEDS: ALBUTEROL 2.5 MG/3 ML NEBU IH PRN (15:11)
--- NOTE | 2019-04-21 18:56 | Progress Note ---
Assessment and Plan Assessment and plan: --Acute systolic Congestive heart Failure mild Echocardiogram 40-45% EF Continue heart failure medications Cardiology following --Acute COPD exacerbation with bronchitis Oxygen titrate O2 sats more than 90% , nebulizers IV steroids , antibiotics , supportive care --coffee-ground emesis/N/V - GERD ? -H/H WNL (13.8/42.0) No new episodes, GI has no plans of Scoping, supportive care -- Hypertension Continue current antihypertensives and when necessary medications --Diabetes mellitus, diet controlled Accu-Chek sliding scale coverage ADA diet Insulin as needed --h/o breast cancer; outpt f/u -- DVT prophylaxis; he SCDs Activities ambulation as tolerated Evaluated for home oxygen Possible discharge home tomorrow if stable History Interval history: Patient seen and examined medical records reviewed Patient feels slightly better no new complaints Still has some recent congestion Vital signs noted Hospitalist Physical - Constitutional Vitals: Temp Pulse Resp BP Pulse Ox 98.0 F 96 H 20 108/62 89 04/21/19 12:12 04/21/19 15:12 04/21/19 15:12 04/21/19 12:12 04/21/19 12:12 General appearance: Present: mild distress, well-nourished, obese (morbidly obese), other (anxious) - EENT Eyes: Present: PERRL, EOM intact - Neck Neck: Present: supple, normal ROM - Respiratory Respiratory effort: normal Respiratory: bilateral: diminished, wheezing, negative: rales, rhonchi - Cardiovascular Rhythm: regular Heart Sounds: Present: S1 & S2 - Extremities Extremities: no ischemia, No edema Peripheral Pulses: within normal limits - Abdominal General gastrointestinal: soft, non-tender, non-distended, normal bowel sounds - Integumentary Integumentary: Present: clear, warm - Psychiatric Psychiatric: appropriate mood/affect, cooperative - Neurologic Neurologic: CNII-XII intact, moves all extremities JACQUELIN score - Jacquelin Score Age > 65: (0) No Aspirin use within the Past 7 Days: (0) No 3 or more CAD Risk Factors: (1) Yes 2 or more Angina events in past 24 hrs: (0) No Known CAD with more than 50% Stenosis: (0) No Elevated Cardiac Markers: (0) No ST Deviation Greater than 0.5mm: (0) No JACQUELIN Score: 1 Results - Labs CBC & Chem 7: 04/19/19 06:28 04/20/19 03:12 Labs: Laboratory Last Values WBC 8.9 K/mm3 (4.5-11.0) 04/19/19 06:28 RBC 4.68 M/mm3 (3.65-5.03) 04/19/19 06:28 Hgb 12.1 gm/dl (10.1-14.3) 04/19/19 06:28 Hct 37.5 % (30.3-42.9) 04/19/19 06:28 MCV 80 fl (79-97) 04/19/19 06:28 MCH 26 pg (28-32) L 04/19/19 06:28 MCHC 32 % (30-34) 04/19/19 06:28 RDW 17.3 % (13.2-15.2) H 04/19/19 06:28 Plt Count 365 K/mm3 (140-440) 04/19/19 06:28 Lymph % (Auto) 25.5 % (13.4-35.0) 04/19/19 06:28 Hardy % (Auto) 5.1 % (0.0-7.3) 04/19/19 06:28 Eos % (Auto) 0.7 % (0.0-4.3) 04/19/19 06:28 Baso % (Auto) 0.4 % (0.0-1.8) 04/19/19 06:28 Lymph # 2.3 K/mm3 (1.2-5.4) 04/19/19 06:28 Hardy # 0.5 K/mm3 (0.0-0.8) 04/19/19 06:28 Eos # 0.1 K/mm3 (0.0-0.4) 04/19/19 06:28 Baso # 0.0 K/mm3 (0.0-0.1) 04/19/19 06:28 Seg Neutrophils % 68.3 % (40.0-70.0) 04/19/19 06:28 Seg Neutrophils # 6.1 K/mm3 (1.8-7.7) 04/19/19 06:28 D-Dimer 469.29 ng/mlDDU (0-234) H 04/17/19 21:37 Sodium 139 mmol/L (137-145) 04/20/19 03:12 Potassium 3.7 mmol/L (3.6-5.0) 04/20/19 03:12 Chloride 98.8 mmol/L (98-107) 04/20/19 03:12 Carbon Dioxide 24 mmol/L (22-30) 04/20/19 03:12 Anion Gap 20 mmol/L 04/20/19 03:12 BUN 24 mg/dL (7-17) H 04/20/19 03:12 Creatinine 1.3 mg/dL (0.7-1.2) H 04/20/19 03:12 Estimated GFR 50 ml/min 04/20/19 03:12 BUN/Creatinine Ratio 18 % 04/20/19 03:12 Glucose 118 mg/dL (65-100) H 04/20/19 03:12 POC Glucose 127 (70-105) H 04/21/19 17:50 Calcium 9.1 mg/dL (8.4-10.2) 04/20/19 03:12 NT-Pro-B Natriuret Pep 3480 pg/mL (0-900) H 04/17/19 18:32 Influenza A (Rapid) Negative (Negative) 04/17/19 18:05 Influenza B (Rapid) Negative (Negative) 04/17/19 18:05 Group A Strep Rapid Negative (Negative) 04/17/19 23:57 Active Medications - Current Medications Current Medications: Generic Name Dose Route Start Last Admin Trade Name Freq PRN Reason Stop Dose Admin Acetaminophen 650 mg 04/18/19 00:12 04/20/19 16:37 Tylenol PO 650 mg Q4H PRN Administration Pain MILD(1-3)/Fever >100.5/CUELLAR Albuterol 2.5 mg 04/18/19 00:12 04/21/19 15:11 Proventil IH 2.5 mg Q4HRT PRN Administration Shortness Of Breath Arformoterol Tartrate 15 mcg 04/20/19 20:00 04/21/19 07:19 Brovana Nebu IH 15 mcg Q12HRT RUTH Administration Budesonide 0.5 mg 04/20/19 20:00 04/21/19 07:19 Pulmicort IH 0.5 mg Q12HRT RUTH Administration Carvedilol 6.25 mg 04/20/19 10:00 04/21/19 11:10 Coreg PO 6.25 mg BID RUTH Administration Furosemide 40 mg 04/18/19 06:00 04/21/19 06:08 Lasix IV 40 mg BID@0600,1800 RUTH Administration Hydralazine HCl 10 mg 04/18/19 06:04 Apresoline IV Q4H PRN Hypertension Hydromorphone HCl 0.25 mg 04/18/19 00:12 04/19/19 10:17 Dilaudid IV 0.25 mg Q3H PRN Administration Pain, Moderate (4-6) Ondansetron HCl 4 mg 04/18/19 00:12 04/19/19 21:02 Zofran IV 4 mg Q8H PRN Administration Nausea And Vomiting Pantoprazole Sodium 40 mg 04/19/19 10:00 04/21/19 11:11 Protonix PO 40 mg BID RUTH Administration Potassium Chloride 20 meq 04/18/19 10:00 04/21/19 11:11 K-Dur PO 20 meq QDAY RUTH Administration Sodium Chloride 10 ml 04/18/19 10:00 04/21/19 12:12 Sodium Chloride Flush Syringe 10 Ml IV 10 ml BID RUTH Administration Sodium Chloride 10 ml 04/18/19 00:12 Sodium Chloride Flush Syringe 10 Ml IV PRN PRN LINE FLUSH
[2019-04-21] MEDS ORDERED: ENOXAPARIN 40 MG/0.4 ML INJ SUB-Q SCH (22:00)
[2019-04-22] MEDS: FUROSEMIDE 40 MG/4 ML INJ IV SCH (05:43)
[2019-04-22 07:23] VITALS: BP 91/67
[2019-04-22] MEDS: BUDESONIDE 0.5 MG/2 ML NEBU IH SCH (07:45)
[2019-04-22] MEDS: ARFORMOTEROL 15 MCG/2 ML NEBU IH SCH (07:45)
--- NOTE | 2019-04-22 07:52 | Discharge Summary ---
Providers - Providers Date of Admission: 04/18/19 06:56 Date of discharge: 04/22/19 Attending physician: NORRIS MILLER 04/18/19 05:35 Consult to Physician [CONS] Routine Comment: Consulting Provider: STELLA ALCANTARA Physician Instructions: Reason For Exam: coffee emesis 04/19/19 08:48 Consult to Physician [CONS] Routine Comment: Consulting Provider: KISHAN PEDRAZA Physician Instructions: Reason For Exam: b/l lung nodules Primary care physician: LAURA WATSON Hospitalization Condition: Fair Disposition: DC-01 TO HOME OR SELFCARE Time spent for discharge: 32 min Core Measure Documentation - Palliative Care Palliative Care/ Comfort Measures: Not Applicable - Core Measures Any of the following diagnoses?: none Exam - Constitutional Vitals: Temp Pulse Resp BP Pulse Ox 98.6 F 94 H 20 91/67 95 04/22/19 03:47 04/22/19 07:45 04/22/19 07:45 04/22/19 07:21 04/22/19 07:47 General appearance: Present: no acute distress, well-nourished - EENT Eyes: Present: PERRL, EOM intact - Neck Neck: Present: supple, normal ROM - Respiratory Respiratory effort: normal Respiratory: bilateral: diminished, negative: rales, rhonchi, wheezing - Cardiovascular Rhythm: regular Heart Sounds: Present: S1 & S2 - Extremities Extremities: no ischemia, No edema - Abdominal General gastrointestinal: Present: soft, non-tender, non-distended, normal bowel sounds - Integumentary Integumentary: Present: clear, warm - Musculoskeletal Musculoskeletal: strength equal bilaterally, generalized weakness - Psychiatric Psychiatric: appropriate mood/affect, cooperative - Neurologic Neurologic: moves all extremities Plan Activity: advance as tolerated Diet: low salt, other (cardiac diet) Additional Instructions: Your oxygen saturations room air and ambulatory more than 92 percent. No need for home oxygen Follow up with: HANNAH DE LA ROSA MD [Referring] - 3-5 Days RAFIQ TENORIO MD [Staff Physician] - 7 Days CECILLE DAY MD [Staff Physician] - 7 Days KISHAN PEDRAZA MD [Staff Physician] - 7 Days Prescriptions: carvediloL [Coreg] 6.25 mg PO BID #60 tablet Furosemide [Lasix TAB] 40 mg PO QDAY #30 tablet Potassium Chloride 10 meq PO DAILY #30 tablet.er Pantoprazole [Protonix TAB] 40 mg PO BID #30 tablet
[2019-04-22] MEDS: PANTOPRAZOLE 40 MG TAB PO SCH (08:34)
[2019-04-22] MEDS: POTASSIUM CHLORIDE ER 20 MEQ TAB PO SCH (08:34)
[2019-04-22] MEDS: carvediloL 6.25 MG TAB PO SCH (10:07)
--- NOTE | 2019-04-22 12:45 | Progress Note ---
Assessment and Plan Pulmonary nodules Acute COPD exacerbation Coffee ground emesis CHF (congestive heart failure) Morbidly obese - prednisone taper over 5 days if discharged - continue solumedrol IV for now - outpatient f/up with risk factor stratification for sub-centimeter pulmonary nodules - continue supplemental oxygen as needed to keep O2 sat's > 90% - continue bronchodilators (GLORIA & LABA) with pulmonary hygiene per RT - continue inhaled corticosteroids - continue diuresis for CHF and adjust per cardiology team - accuchecks with SSI for target BG < 180 mg/dl - continue GI evaluation for coffee grounds emesis (resolved) - PT/OT as tolerated - mobility protocols for pressure ulcer prophylaxis - GI & VTE prophylaxis - tobacco abstinence strongly counseled at bedside - Flu & Pneumovax addressed per protocol ... re-evaluate in am & prn Subjective Date of service: 04/22/19 Principal diagnosis: Pulm nodules; AE-COPD; Coffee ground emesis; CHF; Morbidly obese Interval history: Patient is seen today for: Pulmonary nodules; Acute COPD exacerbation; Coffee ground emesis; CHF (congestive heart failure); Morbidly obese Seen and examined at bedside; 24hour events reviewed; nursing and respiratory care staff consulted; no adverse overnight events reported to me; resting in bed; no N/V/F/C; less SOB Objective Vital Signs - 12hr 04/22/19 04/22/19 04/22/19 02:00 03:47 07:21 Temperature 98.6 F Pulse Rate 91 H 97 H 94 H Pulse Rate [ Bilateral] Respiratory 18 Rate Respiratory Rate [Bilateral ] Blood Pressure 118/81 91/67 O2 Sat by Pulse 95 95 Oximetry 04/22/19 04/22/19 07:45 07:47 Temperature Pulse Rate Pulse Rate [ 94 H Bilateral] Respiratory Rate Respiratory 20 Rate [Bilateral ] Blood Pressure O2 Sat by Pulse 95 Oximetry Constitutional: alert, appears uncomfortable, other (elderly looking obese AAF, normocephalic with mildly increased respiratory effort at rest) Eyes: non-icteric ENT: oropharynx moist Neck: supple, no JVD, other (+ large neck circumference) Effort: mildly labored Ascultation: Bilateral: diminished breath sounds, rhonchi Percussion: Bilateral: not dull Cardiovascular: regular rate and rhythm Gastrointestinal: normoactive bowel sounds, soft, non-tender, non-distended Integumentary: normal Extremities: no cyanosis, pulses normal, no ischemia or petechiae Neurologic: normal mental status, non-focal exam, pupils equal and round, CN II- XII normal Psychiatric: mood appropriate, affect normal CBC and BMP: 04/19/19 06:28 04/20/19 03:12 ABG, PT/INR, D-dimer: PT/INR, D-dimer D-Dimer 469.29 ng/mlDDU (0-234) H 04/17/19 21:37 Abnormal lab findings: Abnormal Labs 04/17/19 04/17/19 04/17/19 18:32 18:32 18:32 RBC 5.25 H MCH 26 L RDW 16.9 H Eos % (Auto) 5.1 H D-Dimer Carbon Dioxide 19 L BUN Creatinine Glucose 123 H POC Glucose NT-Pro-B Natriuret Pep 3480 H 04/17/19 04/18/19 04/18/19 21:37 11:18 16:23 RBC MCH RDW Eos % (Auto) D-Dimer 469.29 H Carbon Dioxide BUN Creatinine Glucose POC Glucose 143 H 190 H NT-Pro-B Natriuret Pep 04/18/19 04/19/19 04/19/19 21:08 06:28 06:28 RBC MCH 26 L RDW 17.3 H Eos % (Auto) D-Dimer Carbon Dioxide BUN 21 H Creatinine 1.3 H Glucose 107 H POC Glucose 133 H NT-Pro-B Natriuret Pep 04/19/19 04/19/19 04/20/19 07:31 16:28 03:12 RBC MCH RDW Eos % (Auto) D-Dimer Carbon Dioxide BUN 24 H Creatinine 1.3 H Glucose 118 H POC Glucose 107 H 142 H NT-Pro-B Natriuret Pep 04/20/19 04/20/19 04/20/19 08:12 17:03 21:55 RBC MCH RDW Eos % (Auto) D-Dimer Carbon Dioxide BUN Creatinine Glucose POC Glucose 109 H 106 H 122 H NT-Pro-B Natriuret Pep 04/21/19 04/21/19 04/21/19 07:41 17:50 20:47 RBC MCH RDW Eos % (Auto) D-Dimer Carbon Dioxide BUN Creatinine Glucose POC Glucose 110 H 127 H 107 H NT-Pro-B Natriuret Pep 04/22/19 07:33 RBC MCH RDW Eos % (Auto) D-Dimer Carbon Dioxide BUN Creatinine Glucose POC Glucose 107 H NT-Pro-B Natriuret Pep Allied health notes reviewed: nursing
[2019-04-22] MEDS ORDERED: methylPREDNISolone Sod Succinate 125 MG/2 ML INJ IV SCH (14:00)
== END 2019-04-22 12:30 | disposition home or self-care (01) ==
LOC: ED 17:21 → 4A 23:53 → UNDOADMIN 23:53 → 4A 04-18 06:56 → INTOOBSV 04-18 06:56
PROVIDERS: ADMIT Internal Medicine Geriatric Medicine; ATTEND Internal Medicine
DX: J44.1 Chronic obstructive pulmonary disease with (acute) exacerbation (principal); I11.0 Hypertensive heart disease with heart failure; I50.21 Acute systolic (congestive) heart failure; E11.9 Type 2 diabetes mellitus without complications; K21.9 Gastro-esophageal reflux disease without esophagitis; R11.2 Nausea with vomiting, unspecified; E66.01 Morbid (severe) obesity due to excess calories; R91.1 Solitary pulmonary nodule; Z87.891 Personal history of nicotine dependence; Z85.3 Personal history of malignant neoplasm of breast; Z79.899 Other long term (current) drug therapy
CPT/HCPCS: 36415; 71046; 71275; 74177; 80048; 82962; 83880; 85025; 85379; 87116; 87400; 87430; 93005; 93010; 93306; 94640; 94760; 96361; 96372; 96374; 96375; 96376; 99284; C9113; G0378; J1170; J1650; J1940; J2405; J2930; J7030; Q9967

== ENCOUNTER 2021-08-31 08:17 | Emergency (ER) | payer MEDICARE ==
[2021-08-31] MEDS ORDERED: LIDOCAINE-MPF (1%) 10 MG/1 ML VIAL 5 ML INFILTRATI ONE ×2 (10:32→14:13)
[2021-08-31] MEDS ORDERED: FAMOTIDINE 20 MG/2 ML INJ IV ONE (10:44)
[2021-08-31] MEDS ORDERED: ONDANSETRON 4 MG/2 ML INJ IV ONE (10:44)
[2021-08-31] MEDS ORDERED: SODIUM CHLORIDE 0.9% 1000 ML 1,000 ML IV ONE (10:45)
[2021-08-31 11:32] LABS: Basophils % (Auto) 0.5 % (0.0-1.8); Eosinophils % (Auto) 0.1 % (0.0-4.3); Hematocrit 40.2 % (30.3-42.9); Hemoglobin 13.2 gm/dl (10.1-14.3); Lymphocytes % (Auto) 15.5 % (13.4-35.0); Mean Corpuscular HGB Conc 33 % (30-34); Mean Corpuscular Volume 83 fl (79-97); Monocytes # (Auto) 0.3 K/mm3 (0.0-0.8); Platelet Count 307 K/mm3 (140-440); Red Blood Count 4.82 M/mm3 (3.65-5.03); Red Cell Distribution Width 17.1 % (13.2-15.2)
[2021-08-31 11:49] LABS: Alanine Aminotransferase 14 units/L (7-56); Albumin 4.3 g/dL (3.9-5); BUN/Creatinine Ratio 15; Blood Urea Nitrogen 20 mg/dL (7-17); Calcium 8.9 mg/dL (8.4-10.2); Hemolysis Index 4
--- NOTE | 2021-08-31 12:57 | XRay Report ---
XR chest 1V ap INDICATION / CLINICAL INFORMATION: chest Pain. COMPARISON: 04/17/2019 FINDINGS: SUPPORT DEVICES: None. HEART /PULMONARY VASCULATURE: No significant abnormality. LUNGS / PLEURA: No acute pulmonary or pleural abnormality. No pneumothorax. ADDITIONAL FINDINGS: No significant additional findings. IMPRESSION: 1. No acute findings. Signer Name: Wale Frazier MD Signed: 08/31/2021 12:52 PM Workstation Name: [id number]
--- NOTE | 2021-08-31 13:47 | Cat Scan Report ---
CT ABDOMEN AND PELVIS WITHOUT CONTRAST HISTORY: pain. Generalized abdominal pain for the past 3 days COMPARISON: CT abdomen/pelvis from 04/18/2019 TECHNIQUE: CT images of the abdomen and pelvis were obtained without administration of intravenous co ntrast. All CT scans at this location are performed using CT dose reduction for ALARA by means of au tomated exposure control. FINDINGS: Lungs/bones: Minimal streaky scarring/atelectasis noted in the lingula. Lung bases are otherwise laura ar. There are degenerative changes throughout the spine and pelvis with nothing acute. Left hip arthr oplasty is intact without complication. Abdomen/pelvis: The liver, spleen, pancreas, adrenals, right kidney, and proximal GI tract appear un remarkable. There is a small midline ventral wall fat-containing hernia. Gallbladder is surgically ab sent. The left kidney is in the pelvis. Discoid appearance of the left adrenal gland. Urinary bladder is unremarkable with no pelvic free fluid. Reproductive organs are normal. There is c olonic diverticulosis with mild inflammatory change in the proximal sigmoid colon. No bowel obstructi on or perforation identified. IMPRESSION: 1. Acute uncomplicated proximal sigmoid diverticulitis. 2. Additional incidental findings as above. Signer Name: Carlito Guzman MD Signed: 08/31/2021 1:42 PM Workstation Name: [id number]
--- NOTE | 2021-08-31 14:26 | Emergency Department Report ---
ED Abdominal Pain HPI - General Chief Complaint: Abdominal Pain Stated Complaint: SICK Time Seen by Provider: 08/31/21 11:49 Source: patient Mode of arrival: Ambulatory Limitations: No Limitations - History of Present Illness MD Complaint: abdominal pain -: Gradual, days(s) Location: LLQ Migration to: no migration Severity scale (0 -10): 2 Quality: aching Consistency: intermittent Improves With: nothing Associated Symptoms: nausea - Related Data Home Medications Medication Instructions Recorded Confirmed Last Taken AtorvaSTATin [Lipitor] 40 mg PO QHS 04/18/19 04/18/19 Unknown Ferrous Sulfate [Iron 325 MG] 325 mg PO DAILY 04/18/19 04/18/19 Unknown Fluticasone Propion/Salmeterol 250 puff PO BID 04/18/19 04/18/19 Unknown [Wixela 250-50 Inhub] Omeprazole 40 mg PO DAILY 04/18/19 04/18/19 Unknown hydroCHLOROthiazide 25 mg PO HS 04/18/19 04/18/19 Unknown [Hydrochlorothiazide] Previous Rx's Medication Instructions Recorded Last Taken Type Furosemide [Lasix TAB] 40 mg PO QDAY #30 tablet 04/22/19 Unknown Rx Pantoprazole [Protonix TAB] 40 mg PO BID #30 tablet 04/22/19 Unknown Rx Potassium Chloride 10 meq PO DAILY #30 tablet.er 04/22/19 Unknown Rx Prednisone [predniSONE 10 mg 10 mg PO .TAPER #1 tab.ds.pk 04/22/19 Unknown Rx (6-Day Pack, 21 Tabs)] carvediloL [Coreg] 6.25 mg PO BID #60 tablet 04/22/19 Unknown Rx Amoxicillin/K Clav Tab [Augmentin 1 tab PO Q12HR #14 tab 08/31/21 Unknown Rx 875 mg] Ondansetron [Zofran Odt] 4 mg PO Q8HR #14 tab.rapdis 08/31/21 Unknown Rx Allergies Allergy/AdvReac Type Severity Reaction Status Date / Time morphine AdvReac HALLUCINATI Verified 10/11/14 10:18 ONS ED Review of Systems ROS: Stated complaint: SICK Other details as noted in HPI Constitutional: denies: chills, fever Eyes: denies: eye pain, eye discharge, vision change ENT: denies: ear pain, throat pain Respiratory: denies: cough, shortness of breath, wheezing Cardiovascular: denies: chest pain, palpitations Endocrine: no symptoms reported Gastrointestinal: denies: abdominal pain, nausea, diarrhea Genitourinary: denies: urgency, dysuria, discharge Musculoskeletal: denies: back pain, joint swelling, arthralgia Skin: denies: rash, lesions Neurological: denies: headache, weakness, paresthesias Psychiatric: denies: anxiety, depression Hematological/Lymphatic: denies: easy bleeding, easy bruising ED Past Medical Hx - Past Medical History Hx Hypertension: Yes Hx Diabetes: Yes Hx GERD: Yes Hx Asthma: Yes Hx COPD: Yes Additional medical history: ANEMIA. HIGH CHOLESTEROL, breast CA right - Surgical History Hx Cholecystectomy: Yes Hx Breast Surgery: Yes (RIGHT MASTECTOMY/IMPLANT) - Social History Smoking Status: Never Smoker - Medications Home Medications: Home Medications Medication Instructions Recorded Confirmed Last Taken Type AtorvaSTATin [Lipitor] 40 mg PO QHS 04/18/19 04/18/19 Unknown History Ferrous Sulfate [Iron 325 MG] 325 mg PO DAILY 04/18/19 04/18/19 Unknown History Fluticasone Propion/Salmeterol 250 puff PO BID 04/18/19 04/18/19 Unknown History [Wixela 250-50 Inhub] Omeprazole 40 mg PO DAILY 04/18/19 04/18/19 Unknown History hydroCHLOROthiazide 25 mg PO HS 04/18/19 04/18/19 Unknown History [Hydrochlorothiazide] Furosemide [Lasix TAB] 40 mg PO QDAY #30 tablet 04/22/19 Unknown Rx Pantoprazole [Protonix TAB] 40 mg PO BID #30 tablet 04/22/19 Unknown Rx Potassium Chloride 10 meq PO DAILY #30 tablet.er 04/22/19 Unknown Rx Prednisone [predniSONE 10 mg 10 mg PO .TAPER #1 tab.ds.pk 04/22/19 Unknown Rx (6-Day Pack, 21 Tabs)] carvediloL [Coreg] 6.25 mg PO BID #60 tablet 04/22/19 Unknown Rx Amoxicillin/K Clav Tab [Augmentin 1 tab PO Q12HR #14 tab 08/31/21 Unknown Rx 875 mg] Ondansetron [Zofran Odt] 4 mg PO Q8HR #14 tab.rapdis 08/31/21 Unknown Rx ED Physical Exam - General Limitations: No Limitations General appearance: alert, in no apparent distress - Head Head exam: Present: atraumatic, normocephalic - Eye Eye exam: Present: normal appearance - ENT ENT exam: Present: mucous membranes moist - Neck Neck exam: Present: normal inspection - Respiratory Respiratory exam: Present: normal lung sounds bilaterally. Absent: respiratory distress - Cardiovascular Cardiovascular Exam: Present: regular rate, normal rhythm. Absent: systolic murmur, diastolic murmur, rubs, gallop - GI/Abdominal GI/Abdominal exam: Present: soft, tenderness - Extremities Exam Extremities exam: Present: normal inspection - Back Exam Back exam: Present: normal inspection - Neurological Exam Neurological exam: Present: alert, oriented X3 - Psychiatric Psychiatric exam: Present: normal affect, normal mood - Skin Skin exam: Present: warm, dry, intact, normal color. Absent: rash ED Course Vital Signs 08/31/21 08:42 Temperature 97.8 F Pulse Rate 102 H Respiratory 18 Rate Blood Pressure 146/90 [Left] O2 Sat by Pulse 99 Oximetry ED Medical Decision Making - Lab Data Result diagrams: 08/31/21 11:00 08/31/21 11:00 - Radiology Data Radiology results: report reviewed, image reviewed - Medical Decision Making work up negative CT showed non compliacted diverticulitis Critical care attestation.: If time is entered above; I have spent that time in minutes in the direct care of this critically ill patient, excluding procedure time. ED Disposition Clinical Impression: Acute diverticulitis Disposition: HOME / SELF CARE / HOMELESS Is pt being admited?: No Does the pt Need Aspirin: No Condition: Stable Instructions: Abdominal Pain (ED) Referrals: PRIMARY CARE, [Primary Care Provider] - 3-5 Days
[2021-08-31 15:03] VITALS: BP 145/65
== END 2021-08-31 15:53 | disposition home or self-care (01) ==
LOC: ED 08:17
DX: K57.92 Diverticulitis of intestine, part unspecified, without perforation or abscess without bleeding (principal); I10 Essential (primary) hypertension; E11.9 Type 2 diabetes mellitus without complications; M19.90 Unspecified osteoarthritis, unspecified site; J45.909 Unspecified asthma, uncomplicated; Z90.49 Acquired absence of other specified parts of digestive tract; Z91.09 Other allergy status, other than to drugs and biological substances; Z79.899 Other long term (current) drug therapy
CPT/HCPCS: 36415; 71045; 74176; 80053; 82150; 82550; 83690; 83880; 84484; 85025; 93005; 96361; 96372; 96374; 96375; 99284; J0696; J2405; J3490; J7030

== ENCOUNTER 2021-11-04 09:54 | Outpatient (CLI) | payer MEDICARE ==
[2021-11-04 11:02] LABS: ABG Base Excess 2.6 mmol/L (-2.0-3.0); ABG HCO3 27.7 mmol/L (20.0-26.0); ABG Methemoglobin 0.5 % (0.0-1.5); ABG Oxygen Saturation 95.2 % (95.0-99.0); ABG PCO2 45.2 mm Hg; ABG PH 7.405 pH Units (7.350-7.450); ABG PO2 69.8 mm Hg (80.0-90.0)
[2021-11-04 11:21] LABS: BUN/Creatinine Ratio 17; Blood Urea Nitrogen 19 mg/dL (7-17); Calcium 9.2 mg/dL (8.4-10.2); HDL Cholesterol 42 mg/dL (40-59); Hemolysis Index 0; LDL Cholesterol,Direct 84 mg/dL (50-130)
--- NOTE | 2021-11-04 14:05 | Cat Scan Report ---
CT CHEST WITH CONTRAST INDICATION / CLINICAL INFORMATION: R91.8. Breast cancer, follow-up lung nodules. TECHNIQUE: Axial CT images were obtained through the chest after 85 cc of Omnipaque [address] scans at this location are performed using CT dose reduction for ALARA by means of automated e xposure control. COMPARISON: CT scan of the chest dated 04/17/[address] scan of the abdomen and pelvis dated 2 FINDINGS: HEART: No significant abnormality. CORONARY ARTERY CALCIFICATION: Present -- Moderate. THORACIC AORTA: Mild atherosclerotic calcification without acute abnormality. MEDIASTINUM / FRANCISCO: No significant abnormality. PLEURA: No pleural effusion. No pneumothorax. LUNGS: Pulmonary nodules are again noted. Some of these are unchanged from the prior exam. The 5 mm n odule noted in the right middle lobe on the prior study has decreased in size in the interval and marco a sures 4 mm currently. No new pulmonary nodules are seen. ADDITIONAL FINDINGS: Changes of prior right mastectomy and reconstruction with implants are noted. UPPER ABDOMEN: No significant change SKELETAL SYSTEM: No acute abnormality. IMPRESSION: 1. Small pulmonary nodules are again noted. The largest nodule on the prior study measured 5 mm. On t he current exam this nodule measures 4 mm. The other nodules are unchanged. No new nodules are seen. Signer Name: Omar Mcgrath MD Signed: 11/04/2021 2:01 PM Workstation Name: [id number]
== END 2021-11-04 09:55 | disposition home or self-care (01) ==
LOC: CT 09:54
PROVIDERS: ATTEND Internal Medicine
DX: R91.1 Solitary pulmonary nodule (principal); J44.9 Chronic obstructive pulmonary disease, unspecified; R91.8 Other nonspecific abnormal finding of lung field; I25.10 Atherosclerotic heart disease of native coronary artery without angina pectoris; I70.0 Atherosclerosis of aorta; Z90.11 Acquired absence of right breast and nipple; Z44.9 Encounter for fitting and adjustment of unspecified external prosthetic device
CPT/HCPCS: 36415; 36600; 71260; 80048; 80061; 82803; 84436; 84443; Q9967

== ENCOUNTER → 2021-11-21 | Outpatient (CLI) | payer MEDICARE | END | disposition home or self-care (01) | LOC: SLR 11:00 | PROVIDERS: ATTEND Internal Medicine | DX: G47.33 Obstructive sleep apnea (adult) (pediatric) (principal) | CPT/HCPCS: 95811 ==